=== PATIENT | male | born 1995 | race Caucasian/White ===

== ENCOUNTER 2024-09-08 13:12 | Outpatient (CLI) | payer OTHER, SELFPAY ==
--- OUTSIDE RECORDS SUMMARY | 2024-02-28 07:34 | XMS_ITS | Encounter Summary ---
Author Name [facility] [place] Organization [facility] [place] [place] Address [address] [place] [address] Care Team Providers Care Supervisor Of Communications Name Role Phone MALIK LOTT Primary Care Provider Unavailabl e Insurance Providers: All historical and current Section Date Range: From patient's date of to the date document was created. This section includes the names of all active insurance providers for the patient. Insurance Provider Type of Coverage Plan Name Start of Policy Coverage End of Policy Coverage Group Number Member ID Insurance Provider's Telephone Number Policy Ash's Name Patient's Relationship to Policy Ash [facility] [place] [employer] PREFERRED PROVIDER ORGANIZAT ION (PPO) PPO 1 PLAN W/IHM AND Apr 08, 2024 [id number] OMERO OLVERA ER PATIENT [employer] S[employer]IPTS ([id number]) PRESCRIPT ION [place] A Apr 08, 2024 [place] [id number] OMERO OLVERA PATIENT Selected Encounter This section includes the information on record at [place] for the Encounter. Date/Time Encounter Type Encounter Description Reason Pro vider Source Feb 28, 2024 11:34 AM Outpatient Encounter ADMIN PAT ACTIVTIES (MASNONCT) IHE Encounter Template Text not used by [facility] Plan of Treatment: Future Appointments (+ 6 months) and Future Tests (+/- 45 days) The Plan of Treatment section includes future care activities for the patient from all VA treatmentfacilities. This section includes future appointments and future orders which are active, pending or scheduled. Future Appointments This section includes appointments that were scheduled to occur 6 months from the date of the Encounter, up to a maximum of 20 appointments. The data comes from all [place] treatment facilities. Appointment Date/Time Appointment Type Appointme nt Facility Name May 04, 2024 11:00 AM AMBULATORY - MEDICINE [facility] Jun 29, 2024 10:30 AM [facility] - NONE [facility] Jun 29, 2024 11:30 AM AMBULATORY - PS[facility]CHIATRY [facility] 2024 10:30 AM AMBULATORY - PSYCHIATRY [facility] 2024 01:45 PM AMBULATORY - MEDICINE [facility] Jul 07, 2024 09:00 AM AMBULATORY - MEDICINE [facility] Jul 27, 2024 12:00 PM AMBULATORY - PSYCHIATRY [facility] August 24, 2024 10:30 AM AMBULATORY - PSYCHIATRY [facility] Encounter Notes: All associated encounter notes This section contains the clinical notes associated to the Encounter. Date/Time Encounter Note(s) Provider Source Feb 28, 2024 11:34 AM ENVIRONMENTAL HEAL TH NOTE: LOCAL TITLE: ENVIRONMENTAL HEALTH REGISTRY COORDINATOR STANDARD TITLE: ENVIRONMENTAL HEALTH NOTE DATE OF NOTE: FEB 28, 2024@11:34 ENTRY DATE: FEB 28, 2024@11:34:45 AUTHOR: MANGO CHOI EXP COSIGNER: URGENCY: STATUS: COMPLETED Spoke with [place] to schedule Airborne Registry exam; warm transferred to Benefits for loading into CPRS; warm transferred back to this specifications writer - scheduled exam; mailed letter/WTE handout/map [facility] EXAM May 04, 2024@11:00 [place] /wilbert/ MANGO CHOI RETREADER Signed: 02/28/2024 11:41 [facility]
--- OUTSIDE RECORDS SUMMARY | 2024-05-04 10:25 | XMS_ITS | Encounter Summary ---
Author Name [facility] Address [address] [place] [address] Care Team Providers Care Mobile Home Lot Utility Worker Name Role Phone MALIK LOTT Primary Care [...] Ash's Name Patient's Relationship to Policy Ash [facility] BLUECARD PREFERRED PROVIDER ORGANIZAT ION (PPO) PPO 1 PLAN W/IHM AND Apr 08, 2024 [id number] OMERO OLVERA ER PATIENT [employer] ([id number]) PRESCRIPT ION [place] A Apr 08, 2024 [place] [id number] [phone] OMERO OLVERA ER PATIENT Selected Encounter This section includes the information on record at [place] for the Encounter. Date/Time Encounter Type Encounter Description Reason Provider Source May 04, 2024 02:25 PM [facility] IVNTJ FAM EA ADDL SOCIAL WORK SERVICE ICD-10-CM Z65.5 Exposure to disaster, war and other hostilities MAEGAN GRAJEDA IHE Encounter Template Text not used by [place] Assessments - Encounter Diagnoses This section includes the primary and secondary diagnoses documented for the Encounter. Date/Time Primary/Secondary Diagnosis Diagnosis Name Provider Source May 04, 2024 03:04 PM PRIMARY Exposure to disaster, war and other hostilities [facility] May 04, 2024 03:04 PM SECONDARY Oth problems related to psychosocial circumstances NICCIMAEGAN Pavel [facility] Plan of Treatment: Future Appointments (+ 6 months) and Future Tests (+/- 45 days) The Plan of Treatment section includes future care activities for the [facility] [place] [facility] This section includes future appointments and future orders which are active, pending or scheduled. Future Appointments This section includes appointments that were scheduled to occur 6 months from the date of the Encounter, up to a maximum of 20 appointments. The data comes from all [place] treatment facilities. Appointment Date/Time Appointment Type Appointme nt Facility Name Jun 29, 2024 10:30 AM AMBULATORY - NONE [facility] Jun 29, 2024 11:30 AM AMBULATORY - PSYCHIATRY [facility] 2024 10:30 AM AMBULATORY - PSYCHIATRY [facility] 2024 01:45 PM AMBULATORY - MEDICINE [facility] Jul 07, 2024 09:00 AM AMBULATORY - MEDICINE [facility] Jul 27, 2024 12:00 PM AMBULATORY - PSYCHIATRY [facility] August 24, 2024 10:30 AM AMBULATORY - PSYCHIATRY [facility] September 02, 2024 10:32 AM AMBULATORY - MEDICINE [facility] Oct 05, 2024 10:30 AM AMBULATORY - PSYCHIATRY [facility] Lab Results: +/- 30 days of the encounter This section includes the Chemistry and Hematology Lab Results on record with [place] for the patient. Radiology Reports and Pathology Reports are provided separately, in subsequent sections. Lab Results This section contains the Chemistry/Hematology Results that were resulted 30 days before or 30 daysafter the date of the Encounter. Date/Time Source Result Type Result - Unit Interpretation Reference Range Specimen Type Comment May 04, 2024 12:38 PM [facility] WN ASPERGILLUS FUMIGATUS IGE SERUM Specimen Type : SERUM Comment: . Levels of Specific IgE Class Description of Class ----- ----- < 0.10 0 Negative 0.10 - 0.31 0/I Equivocal/Low 0.32 - 0.55 I Low 0.56 - 1.40 II Moderate 1.41 - 3.90 III High 3.91 - 19.00 IV Very High 19.01 - 100.00 V Very High >100.00 Very High Ordering Provider: RIO GRANADOS II Report Released Date/Time: May 04, 2024 11:57 AM Reporting Lab: [address] [address] Performing Lab: [address] [address] ASPERGILLUS FUMIGATUS IGE <0.10 kU/L Cla ss 0 May 04, 2024 12:38 PM [facility] CBC/PLT BLOOD Specimen Type: BLOOD Comment: ~For Test: CBC/PLT ~AHOBP Registry Ordering Provider: RIO GRANADOS II Report Released Date/Time: May 04, 2024 10:54 AM Reporting Lab: [address] [address] Performing Lab: [address] [address] WBC 6.7 10*3/uL 5.0-10.0 RBC 5.61 10*6/uL 4.6-6.2 HGB 16.4 g/dL 14.0-18.0 HCT 48.3 42.0-52.0 MCV 86.1 fL 80.0-94.0 MCH 29.2 pg 27.0-31.0 MCHC 34.0 g/dL 32.0-36.0 PLT 257 10*3/uL 150-450 MPV 9.4 fL 9.0-13.1 RDW 11.8 11.0-16.0 NRBC 0.0 0.0-0.0 May 04, 2024 12:38 PM [facility] PANEL 5 PLASMA Specimen Type: PLASMA Comment: ~For Test: CBC/PLT ~AHOBP Registry Ordering Provider: RIO GRANADOS II Report Released Date/Time: May 04, 2024 10:54 AM Reporting Lab: [facility] [address] [facility] [address] Performing Lab: [address] [address] CREATININE 1.23 mg/dL 0.72-1.25 UREA NITROGEN 13 mg/dL 9-25 GLUCOSE 104 mg/dL H 74-100 SODIUM 143 mmol/L 136-145 POTASSIUM 4.0 mmol/L 3.5-5.1 CHLORIDE 107 mmol/L 98-107 CO2 25 mmol/L 22-29 CALCIUM 10.2 mg/dL 8.4-10.2 TOTAL PROTEIN 8.0 g/dL 6.4-8.3 ALBUMIN 4.6 g/dL 3.5-5.2 TOTAL BILIRUBIN 0.8 mg/dL 0.2-1.2 AST 21 U/L 5-34 ALT 24 U/L 0-55 ANION GAP 11 meq/L 3-19 ALK PHOS 69 U/L 40-150 eGFR (CKD-EPI) 83 May 04, 2024 12:38 PM [facility] THYROID PROFILE PLASMA Specimen Type: PLASM A Comment: Estimated Glomerular Filtration Rate (eGFR) calculated using the 2020 Chronic Kidney Disease-Epidemiology (CKD-EPI) Collaboration creatinine equation; units of measure are mL/min/1.73 m2. Results are only valid for adults (>=18 years) whose serum creatinine is in a steady state. eGFR calculations are not valid for patients with acute kidney injury and for patients on dialysis. Creatinine-based estimates of kidney function may also be inaccurate in patients with reduced creatinine generation due to decreased muscle mass (e.g., malnutrition, severe hypoalbuminemia, sarcopenia, chronic neuromuscular disease, amputations, severe heart failure or liver disease) and in patients with increased creatinine generation due to increased muscle mass (e.g., muscle builders, anabolic steroids) or increased dietary intake. As drug clearance is proportional to total GFR and not GFR indexed to body surface area (BSA), in individuals with a BSA substantially different than 1.73 m2, drug dosing should be based on the reported eGFR value de-indexed from BSA by multiplying by the individual's BSA and dividing by 1.73. CKD is diagnosed based on abnormalities of kidney structure or function, present for >3 months, with implications for health and disease. CKD is classified and staged based on cause, eGFR and albuminuria (quantified as urine albumin to creatinine ratio). An eGFR >60 mL/min/1.73 m2 in the absence of increased urine albumin excretion or structural abnormalities does not represent CKD. eGFR CKD Interpretation (mL/min/1.73 m2) stage >=90 G1 Normal 60-89 G2 Mild decrease 45-59 G3A Mild to moderate decrease 30-44 G3B Moderate to severe decrease 15-29 G4 Severe decrease <15 G5 Kidney failure Ordering Provider: RIO GRANADOS II Report Released Date/Time: May 04, 2024 10:54 AM Reporting Lab: [address] [address] Performing Lab: [address] [address] TSH 2.0839 m[IU]/mL 0.3500-4.9400 FREE T4 1.07 ng/mL 0.70-1.48 Radiology Reports: +/- 30 days of the encounter Radiology Reports For cases when an order for radiology services may have been completed prior to the date of the Encounter, the report list includes the Radiology Reports that were completed up to 30 days before dateof the Encounter. For cases when an order for radiology services may have been completed after the date of the Encounter, the report list also includes the Radiology Reports that were completed up to30 days after date of the Encounter. The data comes from all [place] treatment facilities. Date/Time Radiology Report Provider Source May 04, 2024 01:09 PM SINUSES 3 OR MORE VIEWS: KATHYA OLVERA [id number] -[id number] M Exm Date: MAY 04, 2024@13:09 Req Phys: RIO GRANADOS II Pat Loc: [facility] F2F HOME REG EXAM (Req Img Loc: [facility] RADIOLOGY Service: [place] [address] (Case [id number] COMPLETE) SINUSES 3 OR MORE VIEWS (RAD Detailed) CPT:76088 Reason for Study: AHOBP Registry Clinical History: Report Status: Verified Date Reported: MAY 06, 2024 Date Verified: MAY 06, 2024 Fruit And Vegetable Packer E-Sig: Report: SINUSES 3 OR MORE VIEWS, CHEST TWO(2) VIEW PA&LAT, 05/04/2024 1:18 PM EST INDICATION: AHOBP Registry COMPARISON: None Impression: Paranasal sinuses: Well-aerated. No acute fracture. CHEST: No edema or pneumonia. No pleural effusion or pneumothorax. Heart size normal. No acute osseous abnormality. Primary Diagnostic Code: NO ALERT REQUIRED Primary Interpreting Staff: AMY WETZEL Staff Physician Verified by accounts payable analyst for AMY ESCALERA [facility] May 04, 2024 01:09 PM CHEST TWO(2) VIEW PA&LAT: WADEKATHYADOYLE LYONS [id number] -[id number] M Exm Date: MAY 04, 2024@13:09 Req Phys: RIO GRANADOS II Pat Loc: [facility] F2F HOME REG EXAM (Req Img Loc: [facility] RADIOLOGY Service: [place] [address] (Case [id number] COMPLETE) CHEST TWO(2) VIEW PA&LAT (RAD Detailed) CPT:27059 Reason for Study: OBP Registry Clinical [facility] Report Status: Verified Date Reported: MAY 06, 2024 Date Verified: MAY 06, 2024 Fruit And Vegetable Packer E-Sig: Report: SINUSES 3 OR MORE VIEWS, CHEST TWO(2) VIEW PA&LAT, 05/04/2024 1:18 PM EST INDICATION: AHOBP Registry COMPARISON: None Impression: Paranasal sinuses: Well-aerated. No acute fracture. CHEST: No edema or pneumonia. No pleural effusion or pneumothorax. Heart size normal. No acute osseous abnormality. Primary Diagnostic Code: NO ALERT REQUIRED Primary Interpreting Staff: AMY WETZEL Staff Physician Verified by accounts payable analyst for AMY ESCALERA [facility] Encounter Notes: All associated encounter notes This section contains the clinical notes associated to the Encounter. Date/Time Encounter Note(s) Provider Source May 04, 2024 02:25 PM SOCIAL WORK CASE M KEVIN NOTE: LOCAL TITLE: POST 12/17 CASE MANAGEMENT SCREENING STANDARD TITLE: WIND UP WORKER NOTE DATE OF NOTE: MAY 04, 2024@14:25 ENTRY DATE: MAY 04, 2024@14:25:28 AUTHOR: MAEGAN GRAJEDA COSIGNER: URGENCY: STATUS: COMPLETED This technical document writer met with the following an [facility] Registry Exam. Spoke to [place] and provided an overview of the [facility] Case Management Program. [place] was assessed for any case management needs or benefits questions. Assisted the with [place] [facility] Enrollment. He would like to be scheduled with primary care. His main healthcare concern at this time is addressing his frequent migrains (multiple days a week) and issues with passing out at work and dizziness and light headedness that causes nausea and vomitting. He reports concern that he may not be able to continue working if these issues are not addressed. Post 12/17 Case Management Screen The contact with the [place] was made in person. [place] demographic information on file is incorrect. Correct Preferred Method(s) of Communication: Email Mail Telephone Text Medical and/or Mental Health Crisis: The is NOT currently experiencing a medical and/or mental health crisis. Emergency Room Visits/Hospital Admissions: The [place] has NOT had three or more emergency room visits or hospital admissions in the past six months. Chronic Health Conditions: Depression Comment: declined need to see mental health provider at this time Other Specify: migraines, trouble with passing out Concerns/Questions/Needs: The [place] HAS concerns, questions or needs regarding barriers to care. prefers appointments on Mondays due to working 6, 13 hour work days throughout the week. The [place] HAS concerns, questions or needs regarding benefits. [place] has a pending claim for [place], is needing help obtaining [place] [employer] discharge paperwork The [place] HAS concerns, questions or needs regarding managing care. has been unable to determine sourse of frequent passing out and migraines The has NO social concerns, questions or needs at this time. Case Management Screen Outcome: The HAS identified needs as described above. The Veterans identified needs were NOT resolved during this encounter. The is appropriate for further assessment. 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 's main healthcare concerns are chronic headaches, dizziness (causing nausea and vomitting), and frequent passing out which is impacting his ability to work. He also reports difficulty with sleeping and is concerned about sleep apnea. was already aware of OBP registry exams, he was present today for that exam. This technical document writer accompanied the [place] to the lab and to x-rays as well as health benefits to assist him with getting enrolled in [place] [facility]. Scheduled [facility] appointments: pending enrollment verification and request for primary care. 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 Housing, financial, and legal Concerns: [place] owns his current home. He denies any financial or legal concerns at this time. This technical document writer did make the [place] aware of the availability of resources to address these concerns should they come up in the future. Employment/Education History and/or Concerns: [place] went to school for a while but did not finish as he was trying to use his [employer] but they denied payment for school since he was doing a work-study program. Provided the [place] with information about [employer]E if he becomes service-connected at least 10%. [place] does not anticipate wanting to pursue additional schooling at this time. 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 He reports he works 6, 13 hour days a week. Relationships/Readjustment /Behavioral Health needs: Discussed mental health services availablility with the [place]. He declined need for mental health services at this time. Encouraged the to seek assistance in the future if needed. Information provided: Primary Care Mental Health Integration (PCMHI), Couples Therapy, Outpatient Individual & Group therapy in ([facility] or [facility]), Residential Treatment for Substance Abuse & PTSD, and Readjustment Counseling (t [place]) and the [facility]. informed of available 29/10 [place]'s Crisis Line contact as [address]. Additional VA benefits/resources provided: VA ID card, VA Guaranteed Home Loan, service connection claims process, VSO contacts, VA Link (VA.GOV), available VA Apps and Jd Bowden the [facility] Coordinator's contact information as [phone] ext. [phone]. Homelessness/Food Insecurity Screen: In the past 2 months, have you been living in stable housing that you own, rent, or stay in as part of a household? Yes - Living in stable housing. Are you worried or concerned that in the next 2 months you may NOT have stable housing that you own, rent, or stay in as part of a household? No - Not worried about housing near future The [place] reports the following: Within the past 12 months, you worried whether your food would run out before you got money to buy more. Never true Within the past 12 months, the food you bought just didn't last and you didn't have money to get more. 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 The [place] has not already been diagnosed as having TBI during post 12/17 deployment. 1. The experienced the following events during deployment: Fall 2. The [place] had the following symptoms immediately afterwards: Being dazed, confused or seeing stars 3. The [place] states the following problems began or got worse afterwards: Balance problems or Dizziness Sensitivity to light Irritability Headaches Sleep problems 4. The [place] relates he/she is currently having or has had the following symptoms within the past week: Balance problems or dizziness Sensitivity to light Irritability Headaches Sleep problems Positive screen. Results of TBI Screen discussed with patient. Consult for further evaluation discussed with the patient and the patient agrees. Consult order entered or provider notified to enter. Comment: is still pending enrollment, he will be eligible based on his deployment. he has been having difficulty with frequent dizzy spells and migraines and passing out(with falls). He is unsure the cause of his symptoms Diagnosis: Exposure to disaster, war, and other hostilities Other Specified Problems Related to Psychosocial Circumstances Procedure: Health and Behavioral Assessment. 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 denied any ongoing case management needs. [place] verbalized understanding all the above information and how to contact the [facility] Case Management Team for any benefit questions or case management needs in the future. Solution Strategist available for any further case management needs, please alert or contact at ext. [phone]. This provider is receiving ongoing supervision by Karsten Boykin LCSW, regarding the mental health treatment of this patient. A total of 2 hours weekly supervision is obtained, and this patient's care is discussed as needed, in compliance with [facility] Directive 1027. /wilbert/ MAEGAN SILVA, HOTBED LEVER OPERATOR Signed: 05/04/2024 15:04 MAEGAN GRAJEDA [facility]
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
--- OUTSIDE RECORDS SUMMARY | 2024-05-27 06:27 | XMS_ITS | Encounter Summary ---
Author Name [facility] [place] Organization [place] Address [address] [place] [address] Care Team Providers Care Brace Maker Name Role Phone MALIK LOTT Primary Care [...] Ash's Name Patient's Relationship to Policy Ash [facility] [place] BLUECARD PREFERRED PROVIDER ORGANIZAT ION (PPO) PPO 1 PLAN W/IHM AND Apr 08, 2024 [id number] OMERO OLVERA ER PATIENT EXPRESS SCRIPTS ([id number]) PRESCRIPT ION TOYOT A Apr 08, 2024 [place] [id number] OMERO OLVERA PATIENT Selected Encounter This section includes the information on record at [place] for the Encounter. Date/Time Encounter Type Encounter Description Reason Pro vider Source May 27, 2024 10:27 AM Outpatient Encounter ADMIN PAT ACTIVTIES (MASNONCT) IHE Encounter Template Text not used by [place] Plan of Treatment: Future Appointments (+ 6 [...] 20 appointments. The data comes from all [facility] facilities. Appointment Date/Time Appointment Type Appointme nt Facility Name Jun 29, 2024 10:30 AM [facility]ORY - NONE [facility] Jun 29, 2024 11:30 AM AMBULATORY - PSYCHIATRY [facility] 2024 10:30 AM AMBULATORY - PSYCHIATRY [facility] 2024 01:45 PM AMBULATORY - MEDICINE [facility] Jul 07, 2024 09:00 AM AMBULATORY - MEDICINE [facility] Jul 27, 2024 12:00 PM AMBULATORY - PSYCHIATRY [facility] August 24, 2024 10:30 AM AMBULATORY - PSYCHIATRY [facility] September 02, 2024 10:32 AM AMBULATORY - MEDICINE [facility] Oct 05, 2024 10:30 AM AMBULATORY - PSYCHIATRY [facility] Lab Results: +/- 30 days of the encounter This section includes the Chemistry and Hematology Lab Results on record with [place] for the patient. Radiology Reports and Pathology Reports are provided separately, in subsequent sections. Lab Results This section contains the Chemistry/Hematology Results that were resulted 30 days before or 30 daysafter the date of the Encounter. Date/Time Source Result Type Result - Unit Interpretation Reference Range Specimen Type Comment May 04, 2024 12:38 PM [facility] WN ASPERGILLUS FUMIGATUS IGE SERUM Specimen Type [...] May 04, 2024 11:57 AM Reporting Lab: [address] [address] Performing Lab: [facility] [address] [facility] [address] ASPERGILLUS FUMIGATUS IGE <0.10 kU/L Cla ss 0 May 04, 2024 12:38 PM [facility] CBC/PLT BLOOD Specimen Type: BLOOD Comment: ~For Test: CBC/PLT ~AHOBP Registry Ordering Provider: RIO GRANADOS II Report Released Date/Time: May 04, 2024 10:54 AM Reporting Lab: [address] [address] Performing Lab: [address] [address] WBC 6.7 10*3/uL 5.0-10.0 RBC 5.61 10*6/uL 4.6-6.2 HGB 16.4 g/dL 14.0-18.0 HCT 48.3 42.0-52.0 MCV 86.1 fL 80.0-94.0 MCH 29.2 pg 27.0-31.0 MCHC 34.0 g/dL 32.0-36.0 PLT 257 10*3/uL 150-450 MPV 9.4 fL 9.0-13.1 RDW 11.8 11.0-16.0 NRBC 0.0 0.0-0.0 May 04, 2024 12:38 PM [facility] PANEL 5 PLASMA Specimen Type: PLASMA Comment: ~For Test: CBC/PLT ~AHOBP Registry Ordering Provider: RIO GRANADOS II Report Released Date/Time: May 04, 2024 10:54 AM Reporting Lab: [address] [address] Performing Lab: [address] [address] CREATININE 1.23 mg/dL 0.72-1.25 UREA NITROGEN 13 [...] (CKD-EPI) 83 May 04, 2024 12:38 PM [facility] THYROID PROFILE PLASMA Specimen Type: [...] May 04, 2024 10:54 AM Reporting Lab: [address] [address] Performing Lab: [address] [address] TSH 2.0839 m[IU]/mL 0.3500-4.9400 FREE T4 1.07 [...] the Encounter. The data comes from all [place] treatment facilities. Date/Time Radiology Report Provider Source May 04, 2024 01:09 PM SINUSES 3 OR MORE VIEWS: KATHYA OLVERA [id number] -1995 M Exm Date: MAY 04, 2024@13:09 Req Phys: RIO GRANADOS II Pat Loc: [address] HOME REG EXAM (Req Img Loc: [facility] RADIOLOGY Service: [place] [address] (Case [id number] COMPLETE) SINUSES 3 OR MORE VIEWS (RAD Detailed) CPT:12580 Reason for Study: AHOBP Registry Clinical History: Report Status: Verified Date Reported: MAY 06, 2024 Date Verified: MAY 06, 2024 Forensic Toxicologist E-Sig: Report: SINUSES 3 OR MORE VIEWS, CHEST TWO(2) VIEW PA&LAT, 05/04/2024 1:18 PM EST INDICATION: AHOBP Registry COMPARISON: None Impression: Paranasal sinuses: Well-aerated. No acute fracture. CHEST: No edema or pneumonia. No pleural effusion or pneumothorax. Heart size normal. No acute osseous abnormality. Primary Diagnostic Code: NO ALERT REQUIRED Primary Interpreting Staff: AMY WETZEL Staff Physician Verified by digital sales manager for [facility] May 04, 2024 01:09 PM CHEST TWO(2) VIEW PA&LAT: KATHYA OLVERA [id number] -1995 M Exm Date: MAY 04, 2024@13:09 Req Phys: RIO GRANADOS II Pat Loc: [facility] F2F HOME REG EXAM (Req Img Loc: [facility] RAD[facility] Service: Unknown [place] [id number] (Case [id number] COMPLETE) CHEST TWO(2) VIEW PA&LAT (RAD Detailed) CPT:99520 Reason for Study: AHOBP Registry [facility] Report Status: Verified Date Reported: MAY 06, 2024 Date Verified: MAY 06, 2024 Forensic Toxicologist E-Sig: Report: SINUSES 3 OR MORE VIEWS, CHEST TWO(2) VIEW PA&LAT, 05/04/2024 1:18 PM EST INDICATION: AHOBP Registry COMPARISON: None Impression: Paranasal sinuses: Well-aerated. No acute fracture. CHEST: No edema or pneumonia. No pleural effusion or pneumothorax. Heart size normal. No acute osseous abnormality. Primary Diagnostic Code: NO ALERT REQUIRED Primary Interpreting Staff: AMY WETZEL Staff Physician Verified by digital sales manager for [facility] Encounter Notes: All associated encounter notes This section contains the clinical notes associated to the Encounter. Date/Time Encounter Note(s) Provider Source May 27, 2024 10:27 AM LETTERS: LOCAL TITLE: SPECIALTY CONTACT LETTER STANDARD TITLE: LETTERS DATE OF NOTE: MAY 27, 2024@10:27 ENTRY DATE: MAY 27, 2024@10:27:08 AUTHOR: CIARA SANDERS COSIGNER: URGENCY: STATUS: COMPLETED [facility] [address] [place] [address] Mr. KATHYA OLVERA [address] [place] [address] MAY 27, 2024 Dear KATHYA OLVERA, We have been unable to contact you by telephone to schedule an appointment in our Pulmonology/PFT clinic. Your health and well-being are important to us. Please call us at or . Select Option #2 and then #3. We look forward to hearing from you soon. Sincerely yours, Pulmonology/PFT [facility] CIARA SANDERS-RENATO [facility]
--- OUTSIDE RECORDS SUMMARY | 2024-06-29 06:30 | XMS_ITS | Encounter Summary ---
Author Name [facility] [place] Organization [place] Address [address] [place] [address] Care Team Providers Care Crusher Assembler Name Role Phone BIA FAIRCHILD Primary Care Provider Unavailabl e Insurance Providers: [...] Ash's Name Patient's Relationship to Policy Ash [facility] BLUECARD PREFERRED PROVIDER ORGANIZAT ION (PPO) PPO 1 PLAN W/IHM AND Apr 08, 2024 [id number] OMERO OLVERA ER PATIENT EXPRESS SCRIPTS ([id number]) PRESCRIPT ION TOYOT A Apr 08, 2024 [place] [id number] OMERO OLVERA ER PATIENT Selected Encounter This section includes the information on record at [place] for the Encounter. Date/Time Encounter Type Encounter Description Reason Provider Source Jun 29, 2024 10:30 AM OFFICE O/P NEW MOD 45 MIN PRIMARY CARE/MEDICINE ICD-10-CM R55 Syncope and collapse BIA FAIRCHILD K IHNathalia Encounter Template Text not used by [place] Assessments - Encounter Diagnoses This section includes the primary and secondary diagnoses documented for the Encounter. Date/Time Primary/Secondary Diagnosis Diagnosis Name Provider Source Jun 29, 2024 03:28 PM PRIMARY Syncope and collapse FAIRCHILDBIA MELGOZA [facility] Plan of Treatment: Future Appointments (+ 6 months) and Future Tests (+/- 45 days) The Plan of Treatment section includes future care activities for the patient from [facility] [place] [facility]. This section includes future appointments and future orders which are active, pending or scheduled. Future Appointments This section includes appointments that were scheduled to occur 6 months from the date of the Encounter, up to a maximum of 20 appointments. The data comes from all [facility]. Appointment Date/Time Appointment Type Appointme nt Facility Name 2024 10:30 AM [facility] 2024 01:45 PM AMBULATORY - MEDICINE [facility] Jul 07, 2024 09:00 AM AMBULATORY - MEDICINE [facility] Jul 27, 2024 12:00 PM [facility] August 24, 2024 10:30 AM [facility] September 02, 2024 10:32 AM AMBULATORY - MEDICINE [facility] Oct 05, 2024 10:30 AM [facility] Vital Signs: All taken on the encounter date This section contains inpatient and outpatient Vital Signs collected on the date of the Encounter. Date/Time Temperature Pulse Blood Pressure Respiratory Rate SP02 Pain Height Weight Body Mass Index Source Jun 29, 2024 10:33 AM 117/[address] [facility] Jun 29, 2024 10:29 AM 97.7 75 135/90 16 96 0 72 224 30 [facility] Social History: Smoking Status (Most current) and Tobacco Use (All prior to encounter date) This section includes the most current, and the historical, smoking and tobacco- related health factors from the [place] facility where the Encounter took place. Current Smoking Status This section includes the most current smoking, or tobacco-related health factor, from the [place] facility where the Encounter took place. Date/Time Current Smoking Status Khang hardy Jun 29, 2024 10:30 AM [place]-TOBACCO NEVER U SED CIGARETTES [facility] Tobacco Use History This section includes a history of the smoking, or tobacco-related health factors, that were collected on or before the date of the Encounter. The data comes from the [place] facility where the Encounter took place. Date/Time Smoking Status/Tobacco Use Comment F acility Jun 29, 2024 10:30 AM [place]-TOBACCO NEVER U SED OTHER TYPE [facility] Encounter Notes: All associated encounter notes This section contains the clinical notes associated to the Encounter. Date/Time Encounter Note(s) Provider Source Jun 29, 2024 03:30 PM MEDICATION MGT NOT E: LOCAL TITLE: OUTPATIENT ESSENTIAL MEDICATION LIST FOR REVIEW (EM STANDARD TITLE: MEDICATION MGT NOTE DATE OF NOTE: JUN 29, 2024@15:30 ENTRY DATE: JUN 29, 2024@15:30:11 AUTHOR: BIA FAIRCHILD EXP COSIGNER: URGENCY: STATUS: COMPLETED Review of medications include: Patient allergies (Remote and Local) and active and pending prescriptions dispensed from this [place] (local) and dispensed from another [place] or [place] facility (remote and pending) as well as local inpatient orders (pending and active) and clinic medications (IMOs), locally documented non-VA medications and local prescriptions that have or been discontinued in the past 90 days. With the exception of Allergies, if a category is not listed below, it means there were no relevant medications for the patient. ALLERGIES: Patient has answered NKA No Remote Allergy/ADR Data available for this patient ACTIVE OUTPATIENT MEDICATIONS LOCAL/REMOTE No local medications found. No remote medications found. PENDING OUTPATIENT MEDICATIONS (LOCAL/REMOTE): No local medications found. No remote medications found. ACTIVE NONVA MEDICATIONS (LOCAL): No local medications found. OUTPATIENT MEDICATIONS (LOCAL)WITHIN 90 DAYS: No local medications found. DISCONTINUED OUTPATIENT MEDICATIONS (LOCAL) WITHIN 90 DAYS: No local medications found. CLINIC MEDICATIONS (LOCAL): No local medications found. /wilbert/ Bia Fairchild MD Primary Care Physician Signed: 06/29/2024 15:30 BIA FAIRCHILD [facility] Jun 29, 2024 10:34 AM CONSULT: LOCAL TITLE: PC NEW PATIENT CONSULT RESPONSE STANDARD TITLE: CONSULT DATE OF NOTE: JUN 29, 2024@10:34 ENTRY DATE: JUN 29, 2024@10:34:22 AUTHOR: BIA FAIRCHILD EXP COSIGNER: URGENCY: STATUS: COMPLETED Age-28 Chief complaint: Establish care HPI: [facility] However, he brought no medical records. Patient reports a long history of feeling lightheaded and a syncopal episode in 2019. Last episode was approximately 3 to 4 months ago when he became dizzy and had nausea and vomiting. He felt like he was close to passing out. He noted that a coworker described him as being looking stressed. Symptoms resolved after 30 min and he felt great. Patient has an outside PCP, Dr. Chiu, who referred him to a smudger in [place] approximately 6 months ago. He had EKG, echo, blood work, and stress test which he reports as normal. Patient has not had a recent Zio patch or event monitor. He does report having a 6-day monitor in 2019 but results are unknown. Patient states that Dr. Chiu prescribed levothyroxine but he did not take the medication. Patient states that these episodes of lightheadedness occur approximately twice annually. He reports being stressed a lot both with his personal and work life. If I am late to anything, I get all worked up. He is agreeable to a [facility] [place] evaluation today. Medical History: Active problems - Computerized Problem List is the source for the followin. Headache ([facility] [id number]) 2. Allergic Rhinitis ([facility] [id number]) 3. Dyspnea on exertion [ordered PFT and echo- Rule-out IHSS cardiogenic vs pulm etiology] 4. Syncope [reported rare syncope, only when heart is tachy, seems to be good conditioning- R/o IHSS on TTEcho 5. 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 Smoking: denies ETOH: denies Illicit: denies Family Hx: Father: [place] age 54 Mother: [place] PE: 224 lb [101.60 kg] (06/29/2024 10:29) 72 in [182.9 cm] (06/29/2024 10:29) Measurement DT BP 06/29/2024 10:33 117/72 75 (06/29/2024 10:29) BODY MASS INDEX - 30.4 PULSE OX: Measurement DT POx (L/MIN)(%) 06/29/2024 10:29 96 Gen: WN WD WM ENT: translucent TMs Pulm: B CTA; nl respiratory rate CV: RRR no M/R/G; no carotid bruits; no edema GI: NT/ND +BS; no HSM MSK: nl gait; no cyanosis or clubbing of nails; muscle strength 5/5 B UE & LE Neuro: sensation intact Psych: appropriate mood and affect; A&Ox3 ECHO - NONE FOUND Lipid Prof - NONE FOUND PANEL 1 Mark. date GLUCOSE BUN CREAT SODIUM K CHLOR CO2 05/04/24 12:38 104 H 13 1.23 143 4.0 107 25 The OBJECT CBC CUMULATIVE (08/06Y) was NOT found...Contact IRM. Collection DT Specimen Test Name Result Units Ref Range 05/04/2024 12:38 PLASMA!! TSH 2.0839 mIU/mL 0.3500 - 4.9400 05/04/2024 12:38 PLASMA!! FREE T4 1.07 ng/mL 0.70 - 1.48 !! Indicates COMMENTS AVAILABLE...Refer to Interim Lab Report. Z PROSTATIC ANTIGEN - NONE FOUND Z GLYCOHEMOGLOBIN (HPLC) - NONE FOUND A/P: 1. syncope - pt will bring outside records including echo, EKG, stress test, labs, and clinic visits from Dr. Chiu; order event monitor; suspect anxiety related sx; [facility] [place] referral Follow up: 11 mos I spent 50 min today reviewing last visit notes, evaluating and managing the patients conditions, and documenting clinic information in health record. __ Preparing to see patient (tests, reviewing last progress note) _x_ Perform medically necessary Exam _x_ Order tests, procedures, medications _x_ Documenting clinical info in health record __ Independently interpreting results and communicating results to patient/caregiver ___ Refer and/or communicate with other providers regarding patient ___ Obtain/review separately obtained history ___ Placed consult MEDICATION RECONCILIATION: The Outpt Essential Med List for review (EMLR) was reviewed w/the pt and the pt declined an updated reconciled med list w/discrepancies corrected. The patient/caregiver verbalized understanding of the topics covered/discussed in today's visit. Patient/caregiver were given the opportunity to ask questions to MD. /wilbert/ Bia Fairchild MD Primary Care Physician Signed: 06/29/2024 15:29 BIA FAIRCHILD [facility] Jun 29, 2024 10:29 AM PRIMARY CARE YULI LOPEZ NOTE: LOCAL TITLE: Pc Health Tech/rn progressive care unit Note STANDARD TITLE: PRIMARY CARE NURSING NOTE DATE OF NOTE: JUN 29, 2024@10:29 ENTRY DATE: JUN 29, 2024@10:29:04 AUTHOR: SANDRA MONTELONGO COSIGNER: URGENCY: STATUS: COMPLETED The patient was given a list of his current medications, instructed to review and discuss any changes or problems with their provider. Patient advised to carry a list of current medications and any allergies with them in the event of emergency situations. Yes - [place]/Caregiver verbalized understanding of topics discussed and education provided Alcohol Use Screen (AUDIT-C): Alcohol Screen: SCREEN FOR ALCOHOL (AUDIT-C) An alcohol screening test (AUDIT-C) was negative (score=0). 1. How often did you have a drink containing alcohol in the past year? Consider a drink to be a 12 ounce can or bottle of regular beer, 8 ounces of malt liquor, a 5 ounce glass of table wine, or a 1.5 ounce shot of liquor (like scotch, gin, or vodka). Never 2. How many drinks containing alcohol did you have on a typical day when you were drinking in the past year? Response not required due to responses to other questions. 3. How often did you have six or more drinks on one occasion in the past year? Response not required due to responses to other questions. COVID-19 Immunization: Refused Moderna Monovalent COVID-19 vaccine Immunization: COVID-19 (MODERNA), MRNA, LNP-S, PF, 50 MCG/0.5 ML (AGES 12+ YEARS) Refusal Reason: PATIENT DECISION Patient refuses all immunization(s) in the COVID-19 group Date Documented: 06/29/24 10:57 Depression Screening: Perform PHQ-2 A PHQ-2 screen was performed. The score was 0 which is a negative screen for depression. Over the past two weeks, how often have you been bothered by the following problems? 1. Little interest or pleasure in doing things Not at all 2. Feeling down, depressed, or hopeless Not at all Influenza Immunization: Deferral / Refusal The patient declines to receive the recommended dose of seasonal influenza vaccine. Immunization: INFLUENZA, UNSPECIFIED FORMULATION Refusal Reason: PATIENT DECISION Patient refuses all immunization(s) in the FLU group Date Documented: 06/29/24 10:58 MST Screening: Patient denies experiencing sexual trauma (MST). PTSD Screening: PC-PTSD-5 A PTSD screening test (PC-PTSD-5) was negative (score=0). IN THE PAST MONTH, have you ever had any experience that was so frightening, horrible or traumatic. For example: A serious accident or fire a physical or sexual assault or abuse An earthquake or flood A war Seeing someone be killed or seriously injured Having a loved one through homicide or suicide 1. Have you ever experienced this kind of event? NO 2. Had nightmares about the event(s) or thought about the event(s) when you did not want to? Response not required due to responses to other questions. 3. Tried hard not to think about the event(s) or went out of your way to avoid situations that reminded you of the event(s)? Response not required due to responses to other questions. 4. Been constantly on guard, watchful, or easily startled? Response not required due to responses to other questions. 5. [place] numb or detached from people, activities, or your surroundings? Response not required due to responses to other questions. 6. [place] guilty or unable to stop blaming yourself or others for the event(s) or any problems the event(s) may have caused? Response not required due to responses to other questions. Screen for Embedded Fragments: SCREEN FOR EMBEDDED FRAGMENTS The patient reports no embedded fragments. Suicide Screen: C-SSRS Screening [place] Suicide Severity Rating Scale (C-SSRS) screener 1. Over the past month, have you wished you were or wished you could go to sleep and not wake up? No 2. Over the past month, have you had any actual thoughts of killing yourself? No 3. Over the past month, have you been thinking about how you might do this? Response not required due to responses to other questions. 4. Over the past month, have you had these thoughts and had some intention of acting on them? Response not required due to responses to other questions. 5. Over the past month, have you started to work out or worked out the details of how to kill yourself? Response not required due to responses to other questions. 6. If yes, at any time in the past month did you intend to carry out this plan? Response not required due to responses to other questions. 7. In your lifetime, have you ever done anything, started to do anything, or prepared to do anything to end your life (for example, collected pills, obtained a gun, gave away valuables, went to the roof but didn't jump)? No 8. If YES, was this within the past 3 months? Response not required due to responses to other questions. Sexual Orientation: The patient thinks of their sexual orientation as: Straight or Heterosexual Learning Readiness Assessment: Preferred language for discussing health care Qatari NEW ASSESSMENT LEARNING BARRIERS Visual Barrier Comment: corrective lenses READING LIMITATIONS No reading limitations PREFERRED METHODS FOR LEARNING Written/Printed Material Demonstration (Audio/Visual) INTERESTED IN LEARNING (MOTIVATED) PERSON BEING EDUCATED TODAY Education was provided on the following topics RESPONSE Tobacco Use Screening: The patient has never smoked cigarettes. The patient has never used other types of tobacco. Influenza Immunization: Deferral / Refusal The patient declines to receive the recommended dose of seasonal influenza vaccine. Immunization: INFLUENZA, UNSPECIFIED FORMULATION Refusal Reason: PATIENT DECISION Patient refuses all immunization(s) in the FLU group Date Documented: 06/29/24 13:13 Hepatitis B Serology/Immunization: The patient declines to receive the recommended dose of Hepatitis B vaccine. Immunization: HEP B, UNSPECIFIED FORMULATION Refusal Reason: PATIENT DECISION Patient refuses all immunization(s) in the HepB group Date Documented: 06/29/24 13:13 Human Papillomavirus (HPV): The patient declines to receive the recommended dose of HPV vaccine. Immunization: HPV9 Refusal Reason: PATIENT DECISION Patient refuses all immunization(s) in the HPV group Date Documented: 06/29/24 13:14 Tdap Immunization: The patient declines to receive the recommended dose of Tdap vaccine. Immunization: TDAP Refusal Reason: PATIENT DECISION Patient refuses all immunization(s) in the TDAP group Date Documented: 06/29/24 13:14 /wilbert/ SANDRA MONTELONGO Licensed Practical Nurse Signed: 06/29/2024 13:14 SANDR[facility]ELONGO [facility]
--- OUTSIDE RECORDS SUMMARY | 2024-07-06 09:45 | XMS_ITS | Encounter Summary ---
Author Name [facility] [place] Address [address] [place] [address] Care Team Providers Care Larriman Name Role Phone MALIK LOTT Primary Care [...] Ash's Name Patient's Relationship to Policy Ash [facility] BLUECARD PREFERRED PROVIDER ORGANIZAT ION (PPO) PPO 1 PLAN W/IHM AND Apr 08, 2024 [id number] OMERO OLVERA ER PATIENT EXPRESS SCRIPTS ([id number]) PRESCRIPT ION [place]OT A Apr 08, 2024 [place] [id number] OMERO OLVERA ER PATIENT Selected Encounter This section includes the information on record at [place] for the Encounter. Date/Time Encounter Type Encounter Description Reason Provider Source 2024 01:45 PM TTE W/DOPPLER COMPLETE CARDIAC ECHO ICD-10-CM R06.09 Other forms of dyspnea WOODY HUMPHRIES IHE Encounter Template Text not used by [place] Assessments - Encounter Diagnoses This section includes the primary and secondary diagnoses documented for the Encounter. Date/Time Primary/Secondary Diagnosis Diagnosis Name Provider Source Jul 07, 2024 05:31 PM PRIMARY Other forms of dyspnea LYNNE LYLES [facility] Jul 07, 2024 05:31 PM SECONDARY Syncope and collapse [facility] Plan of Treatment: Future Appointments (+ 6 months) and Future Tests (+/- 45 days) The Plan of Treatment section includes future care activities for the patient from all [place] [facility]. This section includes future appointments and future orders which are active, pending or scheduled. Future Appointments This section includes appointments that were scheduled to occur 6 months from the date of the Encounter, up to a maximum of 20 appointments. The data comes from all [facility]. Appointment Date/Time Appointment Type Appointme nt Facility Name Jul 07, 2024 09:00 AM AMBULATORY - MEDICINE [facility] Jul 27, 2024 12:00 PM AMBULATORY - PSYCHIATRY [facility] August 24, 2024 10:30 AM AMBULATORY - PSYCHIATRY [facility] September 02, 2024 10:32 AM AMBULATORY - MEDICINE [facility] Oct 05, 2024 10:30 AM AMBULATORY - PSYCHIATRY [facility] Encounter Notes: All associated encounter notes This section contains the clinical notes associated to the Encounter. Date/Time Encounter Note(s) Provider Source Jul 07, 2024 05:29 PM CARDIOLOGY NOTE: LOCAL TITLE: CARDIOLOGY CHART CHECK NOTE STANDARD TITLE: CARDIOLOGY NOTE DATE OF NOTE: JUL 07, 2024@17:29 ENTRY DATE: JUL 07, 2024@17:29:22 AUTHOR: LYNNE LYLES EXP COSIGNER: URGENCY: STATUS: COMPLETED echo poerformed 2024 /wilbert/ LYNNE LYLES, SRaJren ECHO ROCKET TEST FIRE WORKER ECHO ROCKET TEST FIRE WORKER Signed: 07/07/2024 17:31 [facility] 2024 05:00 PM PROCEDURE REPORT: LOCAL TITLE: CP CARD/ECHO STANDARD TITLE: PROCEDURE REPORT DATE OF NOTE: 2024@17:00:46 ENTRY DATE: 2024@17:00:46 AUTHOR: CLINICAL,DEVICE PRO EXP COSIGNER: URGENCY: STATUS: COMPLETED PROCEDURE SUMMARY CODE: Machine Resulted DATE/TIME PERFORMED: 2024@17:00:2 DOCUMENT IN VISTA IMAGING SEE FULL REPORT IN VISTA IMAGING SIGNATURE NOT REQUIRED SEE SIGNATURE IN VISTA IMAGING (ZXCELERA TTE) AUTO-INSTRUMENT DIAGNOSIS Procedure: Adult Adult Release Status: Released Off-Line Verified Date Verified: 2024@17:00:27 CP Order Number: [id number] [address] [place], [phone] [phone] Adult Echocardiogram Report Name: KATHYA OLVERA Study Date: 2024 01:57 PM : 1995 Gender: Male Age: 29 yrs Ordering Physician: RIO GRANADOS Reason For Study: IHSS Performed By: Lynne Lyles Height: 72 in Weight: 216 lb BSA: 2.2 m2 BP: 132/82 mmHg Interpretation Summary A complete two-dimensional transthoracic echocardiogram was performed (2D, M- mode, Doppler and color flow Doppler). The rate and rhythm during this exam was most suggestive of normal sinus at 60-70bpm. The study was technically excellent. No recent echo is available for comparison. 1. Normal wall thickness. Left ventricular systolic function is normal, with estimated EF > 55%. The diastolic function is normal. The E/e' ratio is most consistent with 'a normal' left atrial pressure. 2. The right ventricular systolic function is normal. 3. No significant valvular stenosis or regurgitation 4. There is no pericardial effusion. Left Ventricle The left ventricular end-diastolic dimension is normal for men (4.2-5.4cm). There is normal left ventricular wall thickness. Left ventricular systolic function is normal, with estimated EF > 55%. The diastolic function is normal. The E/e' ratio is most consistent with 'a normal' left atrial pressure. The left ventricular wall motion is normal. Right Ventricle The right ventricle is normal size. The right ventricular systolic function is normal. The estimated global right ventricular systolic function based upon the tricuspid annular plane of systolic excursion (TAPSE) is 'normal (>17mm)'. The estimated global right ventricular systolic function based upon the TDE maximal systolic velocity is 'normal (>=9.5cm/s)' . Unable to estimate RVSP due to inadequate TR signal. Atria The left atrial size is normal. The right atrial size is normal. Based upon the IVC size and respiratory variation, the estimated RAP is '3mmHg (<=21mm; >50% collapse)'. Mitral Valve The mitral valve is normal in appearance. There is no mitral stenosis. There is trace mitral regurgitation. Tricuspid Valve The tricuspid valve is normal. There is no tricuspid stenosis. There is trace tricuspid regurgitation. Aortic Valve The aortic valve is trileaflet. No hemodynamically significant valvular aortic stenosis. No aortic regurgitation. Pulmonic Valve The pulmonic valve is not well seen, but is grossly normal. There is no pulmonic valvular stenosis. Mild pulmonic valvular regurgitation. Great Vessels The aortic root is normal size. Pericardium/Pleural There is no pericardial effusion. MMode/2D Measurements \T\ Calculations IVSd: 0.64 cm LVIDd: 5.0 cm LV mass(C)d: 93.0 grams LVPWd: 0.54 cm Ao root diam: 2.6 cm Time Measurements MV dec time: 0.18 sec Doppler Measurements \T\ Calculations MV E max niraj: Ao V2 max: 153.0 cm/sec LV V1 max P.3 mmHg 81.5 cm/sec Ao max P.4 mmHg LV V1 mean P.0 mmHg MV A max niraj: Ao V2 mean: 108.0 cm/sec LV V1 max: 144.0 cm/sec 73.3 cm/sec Ao mean P.0 mmHg LV V1 mean: 89.9 cm/sec MV E/A: 1.1 Ao V2 VTI: 29.9 cm LV V1 VTI: 27.5 cm RV S Vel_phl: Lat Peak E' Niraj: Med Peak E' Niraj: 13.3 cm/sec 18.4 cm/sec 11.4 cm/sec MV E/e' (Avg): 5.8 MV Lat E/e': 4.4 MV Med E/e': 7.1 Reading Physician: Woody Humphries MD 2024 05:00 PM Ordering Physician: RIO GRANADOS Performed By: Lynne Lyles Administrative Closure: 2024 by: DEVICE PROXY SERVICE CLINICAL CLINICAL,DEVICE PROXY SERVICE CLINICAL,DEVICE PROXY SERVICE [facility]
--- OUTSIDE RECORDS SUMMARY | 2024-07-27 08:00 | XMS_ITS | Encounter Summary ---
Author Name [facility] [place] Address [address] [place] [address] Care Team Providers Care Duck Farmer Name Role Phone MALIK LOTT Primary Care [...] Ash's Name Patient's Relationship to Policy Ash [facility] BLUECARD PREFERRED PROVIDER ORGANIZAT ION (PPO) PPO 1 PLAN W/IHM AND Apr 08, 2024 [id number] [id number] OMERO OLVERA ER PATIENT [employer] SCRIPTS ([id number]) PRESCRIPT ION TOYOT A Apr 08, 2024 [place] [id number] OMERO OLVERA ER PATIENT Selected Encounter This section includes the information on record at [place] for the Encounter. Date/Time Encounter Type Encounter Description Reason Provider Source Jul 27, 2024 12:00 PM PSYTX W PT 45 MINUTES [facility] INDIV ICD-10-CM F32.A Depression, unspecified ELISSA PURVIS D IHE Encounter Template Text not used by [place] Assessments - Encounter Diagnoses This section includes the primary and secondary diagnoses documented for the Encounter. Date/Time Primary/Secondary Diagnosis Diagnosis Name Provider Source Jul 27, 2024 01:03 PM PRIMARY Depression, unspecified ELISSA PURVIS Ayo [facility] Jul 27, 2024 01:03 PM SECONDARY Anxiety disorder, unspecified ELISSA PURVIS Ayo [facility] Plan of Treatment: Future Appointments (+ 6 months) and Future Tests (+/- 45 days) The Plan of Treatment section includes future care activities for the patient from all [place] [facility]. This section includes future appointments and future orders which are active, pending or scheduled. Future Appointments This section includes appointments that were scheduled to occur 6 months from the date of the Encounter, up to a maximum of 20 appointments. The data comes from all [place] treatment facilities. Appointment Date/Time Appointment Type Appointme nt Facility Name August 24, 2024 10:30 AM AMBULATORY - PSYCHIATRY [facility] September 02, 2024 10:32 AM AMBULATORY - MEDICINE [facility] Oct 05, 2024 10:30 AM AMBULATORY - PSYCHIATRY [facility] Social History: Smoking Status (Most current) and Tobacco Use (All prior to encounter date) This section includes the most current, and the historical, smoking and tobacco- related health factors from the [place] facility where the Encounter took place. Current Smoking Status This section includes the most current smoking, or tobacco-related health factor, from the [place] facility where the Encounter took place. Date/Time Current Smoking Status Comment Facil ity Jun 29, 2024 10:30 AM [place]-TOBACCO NEVER U SED CIGARETTES [facility] Tobacco Use History This section includes a history of the smoking, or tobacco-related health factors, that were collected on or before the date of the Encounter. The data comes from the [place] facility where the Encounter took place. Date/Time Smoking Status/Tobacco Use Comment F acility Jun 29, 2024 10:30 AM [place]-TOBACCO NEVER U SED OTHER TYPE [facility] Encounter Notes: All associated encounter notes This section contains the clinical notes associated to the Encounter. Date/Time Encounter Note(s) Provider Source Jul 27, 2024 01:04 PM MENTAL HEALTH NOTE: LOCAL TITLE: [facility] FOLLOW UP MONITOR NOTE STANDARD TITLE: MENTAL HEALTH NOTE DATE OF NOTE: JUL 27, 2024@13:04:58 ENTRY DATE: JUL 27, 2024@13:04:58 AUTHOR: JUAN DANIEL PURVIS COSIGNER: URGENCY: STATUS: COMPLETED Assessments were sent to the via text/email. These assessments were completed by KATHYA OLVERA on their own device on 07/27/2024 12:10:36 PM. PATIENT HEALTH QUESTIONNAIRE-9 (PHQ-9) The patient reported some symptoms of depression; symptoms are not consistent with a major depressive episode. Patient reported being bothered by the following over the last 2 weeks: 1. Little interest or pleasure: Several Days 2. Feeling down, depressed or hopeless: Several Days 3. Trouble sleeping: More than half the days 4. Tired, low energy: Several Days 5. Poor appetite, over-eating: Not at all 6. Feelings of failure, guilt: Several Days 7. Trouble concentrating: Several Days 8. Motor retardation, agitation: Not at all 9. Thoughts better off /hurting self: Not at all PHQ-9 total score = 7 1-4 = minimal symptoms 5-9= mild symptoms 10-14= moderate symptoms 15-19= moderately severe symptoms 20-27= severe depressive symptoms The patient stated that the depressive symptoms made it somewhat difficult to work, take care of things at home, or get along with others. PHQ-9 Total Score (past 180 days): 07/27/2024 7 06/30/2024 12 GENERAL ANXIETY DISORDER-7 (STEPHANIE-7) Patient reported being bothered by the following over the last two weeks: 1. Feeling nervous, anxious or on edge: Not at all 2. Not being able to stop or control worrying: Several days 3. Worrying too much about different things: Several days 4. Trouble relaxing: More than half the days 5. Feeling restless (hard to sit still): Not at all 6. Becoming easily annoyed or irritable: Not at all 7. Afraid as if something awful might happen: Not at all STEPHANIE-7 total score = 4 0-4=minimal symptoms 5-9=mild symptoms 10-14=moderate symptoms 15-21=severe symptoms The patient stated that the anxiety symptoms made it somewhat difficult to work, take care of things at home, or get along with others. STEPHANIE-7 Total Score (past 180 days): 07/27/2024 4 06/30/2024 6 /wilbert/ JUAN DANIEL PURVIS PSY.D. Licensed Psychologist Signed: 07/27/2024 13:29 JUAN DANIEL PURVIS [facility] Jul 27, 2024 12:55 PM MENTAL HEALTH NOTE: [facility] STANDARD TITLE: MENTAL HEALTH NOTE DATE OF NOTE: JUL 27, 2024@12:55 ENTRY DATE: JUL 27, 2024@12:55:34 AUTHOR: JUAN DANIEL PURVIS EXP COSIGNER: URGENCY: STATUS: COMPLETED [facility] BRIEF THERAPY NOTE Has ADDENDA PRIMARY CARE MENTAL HEALTH INTEGRATION (PCMHI) CO-LOCATED COLLABORATIVE CARE FOLLOW UP NOTE [x] Riek-ws-Reul Date/Time: 07/27/24 at 12 Length of Session (minutes): 39 Current Contact Number: Brief Therapy Session Number: 2 TYPE: [x]Individual [x]Scheduled Session Number: 2 [id number] Assessment and Review of Presenting Problem Risk Assessment (e.g., lethality, suicidality/homicidality): C-SSRS Screening [place]-Suicide Severity Rating Scale (C-SSRS Screener) 1. Over the past month, have you [...] required due to responses to other questions. Brief Mental Status Exam (as applicable) Appearance and Behavior: Casual, fleeting-no eye contact Mood/Affect: Depressed, flat Sensorium (orientation, memory, concentration): WNL Intellectual Functioning: WNL Thought Processes/Regulation: WNL Kabetogama was reminded of the need to assess progress since last appointment and assess current status of presenting concern, which will be used to adjust treatment interventions if needed and inform primary care team of next steps. Measurement-Based Care: PHQ-9: Date Instrument Raw Trans Scale 06/30/2024 10:14 PHQ9 12 PHQ9 STEPHANIE-7: Date Instrument Raw Trans Scale 06/30/2024 10:14 STEPHANIE-7 6 Anxiety PCL-5: No data available for: PCL-5 AUDIT-C: Date Instrument Raw Trans Scale 06/29/2024 10:30 AUDC 0 Total Kabetogama was administered the following self-report instruments to further assess identified area of concern and the use of these instruments to assist in guiding treatment planning and assess progress was discussed with the Kabetogama. Patient Health Questionnaire - 9 (PHQ-9; Depression Measure) (Note: 0-4 Minimal: 5-9 Mild; 10-14 Moderate; 15-19 Moderately severe; 20-27 Severe) Kabetogama obtained a score of 7 which is indicative of mild symptoms. Generalized Anxiety Disorder-7 (STEPHANIE-7; Anxiety measure) (Note: 0-4 Minimal; 5-9 Mild; 10-14 Moderate; 15-21 Severe) Kabetogama obtained a score of 4 which is indicative of minimal symptoms. Pain Measure did not report pain as a topic of concern today. Homework Review Discussed with progress on interventions agreed upon at last appointment. did not exercise because he was too busy. Functional Assessment/Progress Toward Goals/Session Content -------- Discussed with status of presenting problem and it's impact on functioning and changes since the prior visit, including progress towards current goals. Kabetogama noted difficulty with sleeping due to his work schedule. MBC was gathered and reviewed. Pet Caretaker provided psychoeducation about therapy and the therapy process. Kabetogama noted he is lonely. Pet Caretaker utilized DE and problem- solving skills with to address this concern. Provisional Diagnosis/Diagnosis Per Chart Review Depressive Disorder Unspecified Anxiety Disorder Unspecified Intervention: Psychoeducation Brief Motivational Interviewing or Enhancement Therapy Problem Solving Treatment Plan and Follow-up -- Patient Goals: Increase Physical Activity, Make Healthy Choices for Eating Behaviors, Other: address loneliness Homework/Handouts: Homework is to do/try one social activity. Plans for Follow-up: Continue Brief Therapy with [facility] Provider Return to Clinic Follow-Up Appointment: 5/19 at 10:30 Visit Duration: 39 minutes Patient records have been reviewed. Informed/Reviewed with Kabetogama about MH resources in case of crisis including the Veterans Crisis Line number (press 1) and emergency room services. Outcome and recommendations will be discussed with the referring provider and other relevant PACT team members as needed. Please schedule in [facility] for 08/24 at 10:30. /wilbert/ JUAN DANIEL PURVIS PSY.D. Licensed Psychologist Signed: 07/27/2024 13:29 Receipt Acknowledged By: 07/27/2024 16:26 /wilbert/ MALACHI STAHL Advanced Manager Of Financial Reporting 07/27/2024 ADDENDUM STATUS: COMPLETED [facility] August 24, 2024@10:30 EASTERN SCHEDULED PLEASE SCHEDULE IN [facility] FOR 10:30. PER 07/27/24 RTC ORDER /wilbert/ MALACHI STAHL Advanced Manager Of Financial Reporting Signed: 07/27/2024 16:26 JUAN DANIEL PURVIS [facility]
--- OUTSIDE RECORDS SUMMARY | 2024-08-24 06:30 | XMS_ITS | Encounter Summary ---
Author Name [facility] [place] Organization [facility] [place] Address [address] [place] [address] Care Team Providers Care Dye Tub Operator Name Role Phone MALIK LOTT Primary Care [...] Ash's Name Patient's Relationship to Policy Ash [facility] BLUECARD PREFERRED PROVIDER ORGANIZAT ION (PPO) PPO 1 PLAN W/IHM AND Apr 08, 2024 [id number] 1EA [id number] [phone] OMERO OLVERA ER PATIENT [employer] ([id number]) PRESCRIPT ION TOYOT A Apr 08, 2024 [place] [id number] [phone] OMERO OLVERA ER PATIENT Selected Encounter This section includes the information on record at [place] for the Encounter. Date/Time Encounter Type Encounter Description Reason Provider Source August 24, 2024 10:30 AM PSYTX W PT 45 MINUTES [facility] INDIV ICD-10-CM F32.A Depression, unspecified ELISSA PURVIS D IHE Encounter Template Text not used by [place] Assessments - Encounter Diagnoses This section includes the primary and secondary diagnoses documented for the Encounter. Date/Time Primary/Secondary Diagnosis Diagnosis Name Provider Source August 24, 2024 11:19 AM PRIMARY Depression, unspecified ELISSA PURVIS [facility] August 24, 2024 11:19 AM SECONDARY Anxiety disorder, unspecified ELISSA PURVIS [facility] Plan of Treatment: Future Appointments (+ 6 months) and Future Tests (+/- 45 days) The Plan of Treatment section includes future care activities for the patient from [facility] [place] [facility]. This section includes future appointments and future orders which are active, pending or scheduled. Future Appointments This section includes appointments that were scheduled to occur 6 months from the date of the Encounter, up to a maximum of 20 appointments. The data comes from all [place] treatment facilities. Appointment Date/Time Appointment Type Appointme nt Facility Name September 02, 2024 10:32 AM AMBULATORY - MEDICINE [facility] Oct 05, 2024 10:30 AM AMBULATORY - PSYCHIATRY [facility] Social History: Smoking Status (Most current) and Tobacco Use (All prior to encounter date) This section includes the most current, and the historical, smoking and tobacco- related health factors from the [place] facility where the Encounter took place. Current Smoking Status This section includes the most current smoking, or tobacco-related health factor, from the [place] facility where the Encounter took place. Date/Time Current Smoking Status Comment Favio ity Jun 29, 2024 10:30 AM [place]-TOBACCO NEVER U SED CIGARETTES [facility] Tobacco Use History This section includes a history of the smoking, or tobacco-related health factors, that were collected on or before the date of the Encounter. The data comes from the [place] facility where the Encounter took place. Date/Time Smoking Status/Tobacco Use Comment F acalejandro Jun 29, 2024 10:30 AM [place]-TOBACCO NEVER U SED OTHER TYPE [facility] Encounter Notes: All associated encounter notes This section contains the clinical notes associated to the Encounter. Date/Time Encounter Note(s) Provider Source August 24, 2024 11:21 AM MENTAL HEALTH NOTE: LOCAL TITLE: PCMHI FOLLOW UP MONITOR NOTE STANDARD TITLE: MENTAL HEALTH NOTE DATE OF NOTE: AUGUST 24, 2024@11:21:04 ENTRY DATE: AUGUST 24, 2024@11:21:04 AUTHOR: JUAN DANIEL PURVIS EXP COSIGNER: URGENCY: STATUS: COMPLETED Assessments were sent to the via text/email. These assessments were completed by KATHYA OLVERA on their own device on 08/24/2024 10:36:55 AM. PATIENT HEALTH QUESTIONNAIRE-9 (PHQ-9) The patient reported some symptoms of depression; symptoms are not consistent with a major depressive episode. Patient reported being bothered by the following over the last 2 weeks: 1. Little interest or pleasure: Several Days 2. Feeling down, depressed or hopeless: Several Days 3. Trouble sleeping: Several Days 4. Tired, low energy: Several Days 5. Poor appetite, over-eating: Not at all 6. Feelings of failure, guilt: Several Days 7. Trouble concentrating: Not at all 8. Motor retardation, agitation: Not at all 9. Thoughts better off /hurting self: Not at all PHQ-9 total score = 5 1-4 = minimal symptoms 5-9= mild symptoms 10-14= moderate symptoms 15-19= moderately severe symptoms 20-27= severe depressive symptoms The patient stated that the depressive symptoms made it not at all difficult to work, take care of things at home, or get along with others. PHQ-9 Total Score (past 180 days): 08/24/2024 5 07/27/2024 7 06/30/2024 12 GENERAL ANXIETY DISORDER-7 (STEPHANIE-7) Patient reported being bothered by the following over the last two weeks: 1. Feeling nervous, anxious or on edge: Several days 2. Not being able to stop or control worrying: Several days 3. Worrying too much about different things: Several days 4. Trouble relaxing: Several days 5. Feeling restless (hard to sit still): Not at all 6. Becoming easily annoyed or irritable: Several days 7. Afraid as if something awful might happen: Not at all STEPHANIE-7 total score = 5 0-4=minimal symptoms 5-9=mild symptoms 10-14=moderate symptoms 15-21=severe symptoms The patient stated that the anxiety symptoms made it not at all difficult to work, take care of things at home, or get along with others. STEPHANIE-7 Total Score (past 180 days): 08/24/2024 5 07/27/2024 4 06/30/2024 6 /wilbert/ JUAN DANIEL PURVIS PSY.D. Licensed Psychologist Signed: 08/24/2024 11:45 JUAN DANIEL PURVIS [facility] August 24, 2024 11:13 AM MENTAL HEALTH NOTE: LOCAL TITLE: [facility] BRIEF THERAPY NOTE STANDARD TITLE: MENTAL HEALTH NOTE DATE OF NOTE: AUGUST 24, 2024@11:13 ENTRY DATE: AUGUST 24, 2024@11:13:43 AUTHOR: JUAN DANIEL PURVIS EXP COSIGNER: URGENCY: STATUS: COMPLETED PRIMARY CARE MENTAL HEALTH INTEGRATION (PCMHI) CO-LOCATED COLLABORATIVE CARE FOLLOW UP NOTE [x] [id number] Date/Time: 08/24/24 at 10:30 Length of Session (minutes): 38 Current Contact Number: Brief Therapy Session Number: 3 TYPE: [x]Individual [x]Scheduled Session Number: 3 [id number] Assessment and Review of Presenting Problem Risk Assessment (e.g., lethality, suicidality/homicidality): C-SSRS Screening [place]-Suicide Severity Rating Scale (C-SSRS Screener) 1. Over [...] Exam (as applicable) Appearance and Behavior: Casual, fleeting eye contact Mood/Affect: Depressed, flat Sensorium (orientation, memory, concentration): WNL Intellectual Functioning: WNL Thought Processes/Regulation: WNL Ravena was reminded of the need to assess progress since last appointment and assess current status of presenting concern, which will be used to adjust treatment interventions if needed and inform primary care team of next steps. Measurement-Based Care: PHQ-9: Date Instrument Raw Trans Scale 07/27/2024 12:10 PHQ9 7 PHQ9 06/30/2024 10:14 PHQ9 12 PHQ9 STEPHANIE-7: Date Instrument Raw Trans Scale 07/27/2024 12:10 STEPHANIE-7 4 Anxiety 06/30/2024 10:14 STEPHANIE-7 6 Anxiety PCL-5: No data available for: PCL-5 AUDIT-C: Date Instrument Raw Trans Scale 06/29/2024 10:30 AUDC 0 Total Ravena was administered the following self-report instruments to further assess identified area of concern and the use of these instruments to assist in guiding treatment planning and assess progress was discussed with the . Patient Health Questionnaire - 9 (PHQ-9; Depression Measure) (Note: 0-4 Minimal: 5-9 Mild; 10-14 Moderate; 15-19 Moderately severe; 20-27 Severe) Ravena obtained a score of 5 which is indicative of mild symptoms. Generalized Anxiety Disorder-7 (STEPHANIE-7; Anxiety measure) (Note: 0-4 Minimal; 5-9 Mild; 10-14 Moderate; 15-21 Severe) obtained a score of 5 which is indicative of mild symptoms. Pain Measure Ravena did not report pain as a topic of concern today. Homework Review Discussed with progress on interventions agreed upon at last appointment. Ravena relayed he has been extremely busy, so he has not exercised or engaged in one social activity. Functional Assessment/Progress Toward Goals/Session Content -------- Discussed with status of presenting problem and it's impact on functioning and changes since the prior visit, including progress towards current goals. relayed he has been tasked with learning a new job area at work, so he has been working 7 days per week. MBC was gathered and reviewed. Ravena asked about his exam. Manager Electronic explained that A does not do the evaluation, but A does. Ravena noted that he remembered after the last appointment that he was prescribed Hydroxyzine in the past, but he never took it. He explained he doesn't like medication. Manager Electronic provided psychoeducation about behavior activation and self-care time. noted difficulty saying no at work. Manager Electronic and Ravena discussed activities he can do for 30 minutes a day for himself. He plans to play a video game and spend time relaxing outside. Provisional Diagnosis/Diagnosis Per Chart Review Depressive Disorder Unspecified Anxiety Disorder Unspecified Intervention: Psychoeducation Brief Motivational Interviewing or Enhancement Therapy Cognitive Behavioral Therapy Supportive Psychotherapy/Reflection/V alidation Treatment Plan and Follow-up -- Patient Goals: Increase Physical Activity, Make Healthy Choices for Eating Behaviors, Other: address loneliness Homework/Handouts: Other: Homework is to take 30 minutes a day for a pleasant activity. Plans for Follow-up: Continue Brief Therapy with [facility] Provider Return to Clinic Follow-Up Appointment: 10/05 at 10:30 Visit Duration: 38 minutes Patient records have been reviewed. Informed/Reviewed with about resources in case of crisis including the Veterans Crisis Line number (press 1) and emergency room services. Outcome and recommendations will be discussed with the referring provider and other relevant PACT team members as needed. Please schedule in [facility] for 10/05 at 10:30. /wilbert/ JUAN DANIEL PURVIS PSY.D. Licensed Psychologist Signed: 08/24/2024 13:54 Receipt Acknowledged By: 08/24/2024 14:02 /wilbert/ JT HANNON ADVANCED DESTINATION SIGN REPAIRER JUAN DANIEL PURVIS [facility]
--- OUTSIDE RECORDS SUMMARY | 2024-09-02 06:32 | XMS_ITS | Encounter Summary ---
Author Name [facility] [place] Organization [place] Address [address] [place] [address] Care Team Providers Care Hourly Team Members Name Role Phone BIA FAIRCHILD Primary Care [...] Ash's Name Patient's Relationship to Policy Ash [facility] BLUECARD PREFERRED PROVIDER ORGANIZAT ION (PPO) PPO 1 PLAN W/IHM AND Apr 08, 2024 [id number] OMERO OLVERA ER PATIENT [employer] ([id number]) PRESCRIPT ION [place]YOT A Apr 08, 2024 [place] [id number] OMERO OLVERA ER PATIENT Selected Encounter This section includes the information on record at [place] for the Encounter. Date/Time Encounter Type Encounter Description Reason Provider Source September 02, 2024 10:32 AM REMOTE 30 DAY ECG REV/REPORT AMB ECG MONITORING ICD-10-CM R55 Syncope and collapse WENDIE GOMES [facility] Encounter Template Text not used by [place] Assessments - Encounter Diagnoses This section includes the primary and secondary diagnoses documented for the Encounter. Date/Time Primary/Secondary Diagnosis Diagnosis Name Provider Source September 02, 2024 11:02 AM PRIMARY Syncope and collapse KEIRA FERRER CHADAyo [facility] Plan of Treatment: Future Appointments (+ 6 months) and Future Tests (+/- 45 days) The Plan of Treatment section includes future care activities for the patient from all [place] [facility]. This section includes future appointments and future orders which are active, pending or scheduled. Future Appointments This section includes appointments that were scheduled to occur 6 months from the date of the Encounter, up to a maximum of 20 appointments. The data comes from all [place] treatment facilities. Appointment Date/Time Appointment Type Appointme nt Facility Name Oct 05, 2024 10:30 AM AMBULATORY - PSYCHIATRY [facility] Encounter Notes: All associated encounter notes This section contains the clinical notes associated to the Encounter. Date/Time Encounter Note(s) Provider Source September 03, 2024 11:33 AM PRIMARY CARE LETTE RS: LOCAL TITLE: PC LETTER TEST RESULTS STANDARD TITLE: PRIMARY CARE LETTERS DATE OF NOTE: SEPTEMBER 03, 2024@11:33 ENTRY DATE: SEPTEMBER 03, 2024@11:33:35 AUTHOR: BIA FAIRCHILD EXP COSIGNER: URGENCY: STATUS: COMPLETED [address] [id number] Mr. KATHYA OLVERA [address] [place] [address] SEPTEMBER 03, 2024 Dear Mr. KATHYA OLVERA Your cardiac event recorder was normal. Please call us if you have questions or problems. You can reach us at (toll free number) or [phone] (local number). If you are enrolled in [employer], and utilize those services, you may prefer to contact us by secure message. Thank you for your service to our Country. We are honored to be able to provide medical care to you. ASSESSMENT/FINDINGS: PATIENT WAS MONITORED FOR 30 DAYS USING A LOOPING EVENT RECORDER WITH NO PATIENT TRIGGERED EVENTS. RECORDING SHOW SINUS RHYTHM 52-121bpm WITH PVCs. NO SYMPTOMS REPORTED. PLAN: SUMMARY: NORMAL PROCEDURE SUMMARY: SINUS,PVCs Sincerely, /wilbert/ Bia Fairchild MD Primary Care Physician Patient Record Number [id number] BIA FAIRCHILD [facility] September 02, 2024 11:01 AM CARDIOLOGY NOTE: LOCAL TITLE: CARDIOLOGY CHART CHECK NOTE STANDARD TITLE: CARDIOLOGY NOTE DATE OF NOTE: SEPTEMBER 02, 2024@11:01 ENTRY DATE: SEPTEMBER 02, 2024@11:01:14 AUTHOR: KEIRA FERRER COSIGNER: URGENCY: STATUS: COMPLETED evt rec complete /wilbert/ KEIRA FERRER LEENA-EKG Signed: 09/02/2024 11:01 KEIRA FERRER-Ayo [facility]
--- OUTSIDE RECORDS SUMMARY | 2024-09-08 13:16 | XMS_ITS | Continuity of Care Document ---
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 1.73. CKD is diagnosed based on abnormaliti es of kidney structure or function, present for >3 months, with implication s for health and disease. CKD is classified and staged based on cause, eGFR and albuminuria (quantified as urine albumin to creatinine ratio). An eGFR >60 mL/min/1.73 m2 in the absence of increased urine albumin excretion or structural abnormaliti es does not represent CKD. eGFR CKD Interpretat ion (mL/min/1.7 3 m2) stage >=90 G1 Normal 60-89 G2 Mild decrease 45-59 G3A Mild to moderate decrease 30-44 G3B Moderate to severe decrease 15-29 G4 Severe decrease <15 G5 Kidney failure Ordering Provider: LA NENA GRANADOS II Report Released Date/Time: May 04, 2024 10:54 AM Reporting Lab: [facility] RE[facility] [address] [address] Performing Lab: [facility] RE[facility] [address] [address] [facility] THYROID PROFILE FREE T4 1.07 ng/mL 0.70 - 1.48 05/04 Specimen Type: PLASMA Comment: Estimated Glomerular Filtration Rate (eGFR) calculated using the 2020 Chronic Kidney Disease-Epi demiology (CKD-EPI) Collaborati on creatinine equation; units of measure are mL/min/1.73 m2. Results are only valid for adults (>=18 years) whose serum creatinine is in a steady state. eGFR calculation s are not valid for patients with acute kidney injury and for patients on dialysis. Creatinine- based estimates of kidney function may also be inaccurate in patients with reduced creatinine generation due to decreased muscle mass (e.g., malnutritio n, severe hypoalbumin emia, sarcopenia, chronic neuromuscul ar disease, amputations , severe heart failure or liver disease) and in patients with increased creatinine generation due to increased muscle mass (e.g., muscle builders, anabolic steroids) or increased dietary intake. As drug clearance is proportiona l to total GFR and not GFR indexed to body surface area (BSA), in individuals with a BSA substantial ly different than 1.73 m2, drug dosing should be based on the reported eGFR value de-indexed from BSA by multiplying by the individual' s BSA and dividing by 1.73. CKD is diagnosed based on abnormaliti es of kidney structure or function, present for >3 months, with implication s for health and disease. CKD is classified and staged based on cause, eGFR and albuminuria (quantified as urine albumin to creatinine ratio). An eGFR >60 mL/min/1.73 m2 in the absence of increased urine albumin excretion or structural abnormaliti es does not represent CKD. eGFR CKD Interpretat ion (mL/min/1.7 3 m2) stage >=90 G1 Normal 60-89 G2 Mild decrease 45-59 G3A Mild to moderate decrease 30-44 G3B Moderate to severe decrease 15-29 G4 Severe decrease <15 G5 Kidney failure Ordering Provider: LA NENA GRANADOS II Report Released Date/Time: May 04, 2024 10:54 AM Reporting Lab: [facility] [address] [facility] [address] Performing Lab: [facility] [address] [facility] [address] [facility] Infect us Disease Source of Test.LC Other (01/08/22 10:55 AM) 01/08 [place] Infect us Disease HIV-1/2 AG/AB 4G CDD LC NEGATIVE 01/08 Result Comment: Performed At: 1 [facility] [address] [place] [id number] KEIRY WATERS PHD Ph:[phone] [address] [place] [address] Shawn Frank Vital Signs Combined list of inpatient and outpatient Vital Signs from Department of Defense and Veterans Affairs, ranging from 12 months to all on record, depending upon the facility. Vital Sign Value Date Comments Source Systolic Blood Pressure 116 mm[Hg] 01/09/20 15:22:00 [facility] Diastolic Blood Pressure 66 mm[Hg] 15:22:00 [facility] [place] [place] Serna Temperature Temporal Artery 36.5 Stacy 01/08/2022 15:22:[address] [place] [address] Shawn Serna Peripheral Pulse Rate 80 bpm 01/08/2022 15:22:00 [facility] [place] [place] Shawn Serna Peripheral Pulse Rate 76 bpm 01/09/2022 19:23:[address] [place] [address] Shawn Serna Systolic Blood Pressure 106 mm[Hg] 01/10/20 19:23:00 [facility] [place] [place] Serna Diastolic Blood Pressure 66 mm[Hg] 19:23:00 [facility] [place] [place] Shawn Serna Mean Arterial Pressure, Calc 79 mm[Hg] 01/09/2022 19:23:00 [facility] Shawn Serna Temperature Oral 37.0 Stacy 01/09/2022 19:23:00 [facility] Shawn Serna SYSTOLIC BLOOD PRESSURE 135 06/30/19 10:29:25 [facility] DIASTOLIC BLOOD PRESSURE 90 025 10:29:25 [facility] PULSE OXIMETRY 96 06/29/2024 10:29:25 [facility] WEIGHT 224 06/29/2024 10[facility]29:25 [facility] BMI 30 kg/m2 06/29/2024 10:29:25 [facility] PAIN 0 06/29/2024 10:29:25 [facility] HEIGHT 72 06/29/2024 10:29:25 [facility] TEMPERATURE 97.7 06/29/2024 10:29:25 [facility] PULSE 75 06/29/2024 10:29:25 [facility] RESPIRATION 16 06/29/2024 10:29:25 [facility] Encounters Combined list of: 1) Encounters from Department of Veterans Affairs facilities going backup to the last 18 months, not all VA inpatient encounters are included; 2) Encounters from the Department of Defense facilities going backup to 280 months. Location Location Details Encounter Type Encounter Number Reason For Visit Attending Provider ADM Date DC Date Status Disposition Source [place] OUTPATIENT [id number] Notes Entered by: TERESSA HORTON 25 Feb 2018 0618 ------- ------- ------- ------- -- Optomet ry CINDY Felipe 02/25 Released w/o Limitations [place] OUTPATIENT [id number] Notes Entered by: GOLDEN SCHREIBER 25 Feb 2018 0719 ------- ------- ------- ------- -- [id number] DAY 1 038 KEVIN TAMAYO 02/25 Released w/o Limitations [facility] Héctor Hernandez [facility] [place]) [facility] Héctor Hernandez [facility] [place] Conserv[place] OUTPATIENT [id number] Notes Entered by: Melodie LINDSAY 26 Feb 2018 1052 ------- ------- ------- ------- -- 038 ADAM LINDSAY 02/26 Released w/o Limitations [facility] Héctor Hernandez [facility] [place] [facility] Héctor Hernandez [facility] [place] OUTPATIENT [id number] Notes Entered by: PENG ESPINO 28 Feb 2018 0407 ------- ------- ------- ------- -- [id number] DAY 3 038 YSABEL OLEARY 02/28 Released w/o Limitations [facility] Héctor Hernandez [facility] [place] [facility] Héctor Hernandez [facility] [place] OUTPAT[place] [id number] Notes Entered by: NISSA CHOI 11 Mar 2018 0710 ------- ------- ------- ------- -- THROAT/ NAUSEA/ FEVER/C KIMBERLEE BAUGH 03/11 Released w/o Limitations [facility] Héctor Hernandez [facility] [place]) [facility] Héctor Hernandez [facility] [place] TELE CONSULT [id number] Notes Entered by: Arsenio GARRETT 12 Mar 2018 1018 ------- ------- ------- ------- -- Medicat ion pickup GLADYS GARRETT 03/12 Referred for Appointment [facility] Héctor Hernandez [facility] LYNSEY Christie(C-TM C Er Module) [facility] Héctor Hernandez [facility] LYNSEY Christie(C-TMC Er Module) OUTPATIENT [id number] Notes Entered by: YSABEL REY 13 Mar 2018 0835 ------- ------- ------- ------- -- LOD LIT HEADED KIMBERLEE FOFANA 03/13 Released w/o Limitations [facility] Héctor Hernandez [facility] [place]) [facility] Héctor Hernandez [facility] LYNSEY Christie(C-TMC Er Module) TELE CONSULT [id number] Notes Entered by: Arsenio GARRETT 13 Mar 2018 1144 ------- ------- ------- ------- -- MRI sched ed for 17 Mar 2000 ALMA VASQUEZ 03/13 Other Not Elsewhere Classified [facility] Héctor Hernandez [facility] LYNSEY Christie(C-TM C Er Module) [facility] Héctor Hernandez [facility] LYNSEY Christie(C-TMC Er Module) OUTPATIENT [id number] Notes Entered by: NISSA CHOI 18 Mar 2018 0730 ------- ------- ------- ------- -- LOD F/U MRI RESULTS KIMBERLEE LIVE 03/18 Released w/o Limitations [facility] Héctor Hernandez [facility] [place] [facility] Héctor Hernandez [facility] LYNSEY Christie(C-TMC Er Module) OUTPATIENT [id number] Notes Entered by: Harsh SALVADOR 26 Mar 2018 0722 ------- ------- ------- ------- -- POSS STREP THROAT KIMBERLEE LIVE 03/26 Released w/o Limitations [facility] Héctor Hernandez [facility] [place] OUTPATIENT [id number] Notes Entered by: Harsh SALVADOR 23 Apr 2018 0725 ------- ------- ------- ------- -- BONE MUSCLE KIMBERLEE LIVE 04/23 [place]ased [place] Limitations [place] OUT[place] [id number] Notes Entered by: YSABEL REY 08 May 2018 0815 ------- ------- ------- ------- -- MELISSA ARAIZA 05/08 [place]ick [place] Home[place] OUTPATIENT [id number] Notes Entered by: PENG ESPINO 19 May 2018 0428 ------- ------- ------- ------- -- A CO 1-58 TWIN/MM R/VIGNESH VANNESSA GOINS 05/19 [place]ased w/o Limitations [place] [address](Opt ometry [facility] OUTPATIENT [id number] Notes Entered by: IRLANDA HARRIS 12 Jun 2018 0622 ------- ------- ------- ------- -- eye exam LORE OSBORN 06/12 Released w/o Limitations [facility] [place] [address](O ptometr y [facility] [place] [address](AMH [place]) OUTPATIENT [id number] SCALL/D 232 MARGARITA RAMEY E 06/19 Released w/o Limitations [facility] [place] [address](A MH S01B [place] ) [place] [address]([facility] S01B [place]) OUTPATIENT [id number] Injurie d pelvias yesterd ay S/p fall ESTEEDWINA, VONNIE R 06/23 Released w/o Limitations [facility] [place] [address](A MH S01B [place] ) [place] [address](PT [facility] in [facility]) OUTPATIENT [id number] Sprain of unspeci fied ligamen t of right ankle, initial encount er BRENDA LAN E 07/01 Released with Work/Duty Limitations [facility] [place] [address]([place] [address](PT [facility] in [facility]) OUTPATIENT [id number] right ankle/h ip LOUIE , AMOS L 07/09 Released w/o Limitations [facility] [place] [address]([place] [address]([facility] S01B [place]) OUTPATIENT [id number] SCALL SAHIL NIEVES J 07/14 Immediate Referral [facility] [place] [address](A S01B [place] ) [place] [address](PT [facility] in [facility]) OUTPATIENT [id number] right ankle/h ip VILLA, TAEYEONG 07/16 Released w/o Limitations [facility] [place] [address]([place] [address](PT [facility] in [facility]) OUTPATIENT [id number] right ankle/h ip LANCAMELIA JAQUEZDY E 07/22 Released with Work/Duty Limitations [facility] [place] [address](P T [place] in [facility]) [place] [address](Shabbir rology [facility]) OUTPATIENT [id number] Consult /bkd via Drill FABBYJulisa. Ken. Roman @. SARTHAK NAGY 07/30 Released w/o Limitations [facility] [place] [address](N eurolog y [facility]) [place] [address](AMH S01B [place]) OUTPATIENT [id number] cough, vomitin g, joint pain x 24 hrs SALRAUDEL SALVADOR L 08/13 Sick at Home/Quarter s [facility] [place] [address](A MH S01B [place] ) [place] [address](PT [facility] in [facility]) OUTPATIENT [id number] right ankle LAN, BRENDA E 08/18 Released w/o Limitations [facility] [place] [address](P T [place] in [facility]) [place] [address](AMH S01B [place]) OUTPATIENT [id number] 5 SCALL/0 708 EZEQUIEL SAHIL J 08/20 Released w/o Limitations [facility] [place] [address](A MH S01B [place] ) [place] [address](AMH S01B [place]) TELE CONSULT [id number] Notes Entered by: ANN WALDROP 20 Aug 2018 1454 ------- ------- ------- ------- -- CXR results , new med in pharmac y ALYSSA WALDROP 08/20 Released w/o Limitations [facility] [place] [address](A MH S01B [place] ) [place] [address]([facility] Primary Care Clinic [facility]) OUTPATIENT [id number] Notes Entered by: DAVID REY 22 Sep 2018 0832 ------- ------- ------- ------- -- SHELBY SYKES 09/22 Released w/o Limitations [facility] [place] [address](S Primary Care Clinic [facility]) Dave Breaux r [facility] [place] OUTPATIENT [id number] right elbow pain GOLDEN ROSENBERG E 10/15 Released with Work/Duty Limitations Dave judd [facility] ([facility]B [facility] Dave Breaux r [facility] [place] OUTPATIENT [id number] follow up right elbow pain LEOBARDO MELO R 10/20 Released w/o Limitations Dave judd [facility] [place] Dave Breaux r [facility] [place] OUTPATIENT [id number] hip pain LEOBARDO MELO R 11/10 Released with Work/Duty Limitations Dave Valladares [facility] [place]) Dave Breaux r [facility] [place] OUTPATIENT [id number] Left Leg/Rig ht Hip Pain SOHAN BRAND E 01/12 Released with Work/Duty Limitations Dave Valladares [facility] [place]) Dave Breaux r [facility] [place] OUTPATIENT [id number] Bloody Dischar ge from Left Inner Ear [place] KHALIL 02/02 Released w/o Limitations Dave Valladares [facility] [place]) Dave Breaux r [facility] [place] OUTPATIENT [id number] f/u [place] KHALIL 02/04 Released w/o Limitations Dave Valladares [facility] [place]) Dave Breaux r [facility] [place]) OUTPATIENT [id number] Notes Entered by: Tu KOHLER 17 Feb 2019 0856 ------- ------- ------- ------- -- FLU SHOT ROSA VILLAFANA Estelle 02/17 Released w/o Limitations D. D. Vaheo [facility] 01 A [facility]) Dave hines [facility]01 A [facility]) OUTPATIENT [id number] bad cold sx SOHAN BRAND Nathalia 02/24 Released w/o Limitations D. D. Popenho [facility] 01 A [facility]) Dave Breaux r [facility](Optome try-Conne [facility]) OUTPATIENT [id number] acd/eye exam CAMERON YSABEL M 03/18 Released w/o Limitations D. D. Vaheo [facility] Dave hines [facility]01 A [facility]) OUTPATIENT [id number] [place] ALLEN 05/01 Released w/o Limitations D. DJaren Cottero [facility] 01 A [facility]) Dave hines [facility](Hearin g Conservat ion Clinic) OUTPATIENT [id number] MADHU CORTEZ 05/05 [facility] w/o Limitations [facility] OUTPATIENT [id number] F2F CHILLS, NAUSEA, COUGHIN G,SWOLL EN THROAT. [phone] TAN COREAS 03/07 Sick at Home/Quarter s [facility]) [facility] Hearing Program) OUTPATIENT [id number] Notes Entered by: SOFIA SAUL 09 Mar 2021 0723 ------- ------- ------- ------- -- FOLLOW UP RISHI ACOSTA 03/09 Released w/o Limitations [facility](SR P Hearing Program ) [facility] Deploymen t [facility]) OUTPATIENT [id number] Notes Entered by: Monserrat BARDALES 09 Mar 2021 0816 ------- ------- ------- ------- -- JAYNE GARCÍA 03/09 Released w/o Limitations [facility] P Deploym ent [facility]) [facility]) OUTPATIENT [id number] Notes Entered by: CESAR MAI 15 Mar 2021 1229 ------- ------- ------- ------- -- HAY RAYA 03/15 Released w/o Limitations [facility](SR P Deploym ent Clinic) [facility] OUTPATIENT [id number] Theater Provider 04/11 Released w/o Limitations [facility] OUTPATIENT [id number] Theater Provider 04/12 Released w/o Limitations [facility] OUTPATIENT [id number] Theater Provider 11/07 Sick at Home/Quarter s [facility] OUTPATIENT [id number] Theater Provider 11/16 Released with Work/Duty Limitations Theater Facilit y [facility] Outpatient Encounter [id number] 02/27 [place] Outpatient Encounter [id number] 02/27 [place] [facility] En[facility] [id number] 03/26 [place] [facility] Out[facility] Encounter [id number] Diagnos is: ICD-10- CM Z77.110 Contact with and (suspec camelia) exposur e to air polluti on [place] LLIAM E II 05/04 [place] [facility] HLTH BHV IVNTJ FAM EA ADDL [id number] Diagnos is: ICD-10- CM Z65.5 Exposur e to disaste r, war and other hostili ties GRAJEDA,KODY ITH L 05/04 [place] [facility] Outpatient Encounter [id number] 05/05 [place] Out[facility] Encounter [id number] 05/27 [place] OFFICE O/P NEW MOD 45 MIN [id number] Diagnos is: ICD-10- CM R55 Syncope and collaps e LOTT,NAN CY K 06/29 [place] [facility] PSYTX W PT 45 MINUTES [id number] Diagnos is: ICD-10- CM F41.9 Anxiety disorde r, unspeci fied LOLY,JUST IN F 06/29 [place] [facility] Outpatient Encounter [id number] 06/29 [place] [facility] Outpatient Encounter [id number] 06/30 [place] [facility] PSYTX W PT 30 MINUTES [id number] Diagnos is: ICD-10- CM F32.A Depress ion, unspeci fied AMBAR PURVIS 07/06 [place] [facility] TTE W/DOPPLER COMPLETE [id number] Diagnos is: ICD-10- CM R06.09 Other forms of dyspnea BRANDI HUMPHRIES Natahlia W 07/06 [place] ECG/REVIEW INTERPRET ONLY [id number] Diagnos is: ICD-10- CM R55 Syncope and collFAHEEM Hancock IG A 07/07 [place] PSYTX W PT 45 MINUTES [id number] Diagnos is: ICD-10- CM F32.A Depress ion, unspeci fied PURVISAMBAR PHANIE D 07/27 [place] [facility] PSYTX W PT 45 MINUTES [id number] Diagnos is: ICD-10- CM F32.A Depress ion, unspeci fied PURVIS,AMBAR PHANIE D 08/24 [place] [facility] REMOTE 30 DAY ECG REV/REPORT [id number] Diagnos is: ICD-10- CM R55 Syncope and FAHEEM Bernabe IG A 09/02 [place] Procedures Combined list of: 1) Procedures from Department of [facility] Affairs facilities going back up to thelast 18 months, not all VA non-surgical procedures are included; 2) All procedures from the Department of Defense facilities. Procedure Procedure Type Code Date Perfomer Comments Sourc e PNEUMONIA ADMITTED [facility] 2018 NO COMPLICATIOANS 8A-[facility] Shawn Frank TONSILLECTOMY AND ADNOIDECTOMY REMOVAL AGE 15/14 NO COMPLICATIONS -[facility] Shawn Frank WISDOM TEETH EXTRACTED (4) FEB 2019 NO COMPLICATINS [facility] Shawn Frank BRIEF EMOTIONAL/BEHAVIORA L ASSESSMENT (EG, DEPRESSION INVENTORY, ATTENTION-DEFICIT/H YPERACTIVITY DISORDER [ADHD] SCALE), WITH SCORING AND DOCUMENTATION, PER STANDARDIZED INSTRUMENT 2020 [facility] PURE TONE AUDIOMETRY (THRESHOLD), AUTOMATED; AIR ONLY 2020 [facility] MEASLES, MUMPS AND RUBELLA VIRUS VACCINE (MMR), LIVE, FOR SUBCUTANEOUS USE 2018 [facility] INFLUENZA VIRUS VACCINE, QUADRIVALENT (IIV4), SPLIT VIRUS, 0.5 ML DOSAGE, FOR INTRAMUSCULAR USE 2017 [facility] AUDIOMETRIC TESTING OF GROUPS 2017 [facility] COLLECTION OF VENOUS BLOOD BY VENIPUNCTURE 2017 [facility] FITTING OF SPECTACLES, EXCEPT FOR APHAKIA; MONOFOCAL 2017 [facility] EAR MOLD/INSERT, NOT DISPOSABLE, ANY TYPE 2019 DoD REMOVAL IMPACTED CERUMEN USING IRRIGATION/LAVAGE, UNILATERAL 2019 DoD PSYCHIATRIC DIAGNOSTIC EVALUATION 2019 [facility] INJECTION, KETOROLAC TROMETHAMINE, PER 15 MG 2019 [facility] FITTING OF SPECTACLES, EXCEPT FOR APHAKIA; MONOFOCAL 2018 [facility] ELECTROCARDIOGRAM, ROUTINE ECG WITH AT LEAST 12 LEADS; WITH INTERPRETATION AND REPORT 2018 [facility] INFLUENZA VIRUS VACCINE, QUADRIVALENT (IIV4), SPLIT VIRUS, PRESERVATIVE FREE, 0.5 ML DOSAGE, FOR INTRAMUSCULAR USE 2018 [facility] PSYCHOTHERAPY, 60 MINUTES WITH PATIENT 2018 [facility] PSYCHIATRIC DIAGNOSTIC EVALUATION 2018 [facility] BRIEF EMOTIONAL/BEHAVIORA L ASSESSMENT (EG, DEPRESSION INVENTORY, ATTENTION-DEFICIT/H YPERACTIVITY DISORDER [ADHD] SCALE), WITH SCORING AND DOCUMENTATION, PER STANDARDIZED INSTRUMENT 2018 DoD PSYCHIATRIC DIAGNOSTIC EVALUATION 2018 [facility] Psychiat Therapy Indiv Appr 45-50 Min W/ Med Eval Managemt Psychiat Therapy Indiv Appr 45-50 Min W/ Med Eval Managemt [id number] 2018 CAROLEE PEREIRA DoD Dangerousne A e ment Suicide Risk Dangerousness Assessment Suicide Risk 3085F 2018 CAROLEE PEREIRA DoD Psychiatric Evaluation Review of Records and Reports Psychiatric Evaluation Review of Records and Reports 19751 2018 SWETHA BLUNT Dangerousne A e ment Suicide Risk Dangerousness Assessment Suicide Risk 3085F 2018 CAROLEE PEREIRA Dangerousne A e ment Suicide Risk Dangerousness Assessment Suicide Risk 3085F 2018 BREE MCGUIRE DoD Psychiatric Therapy Individual Approximately 45-50 Minutes Psychiatric Therapy Individual Approximately 45-50 Minutes [id number] 2018 BREE MCGUIRE [facility] Erica butler Suicide Risk Dangerousness Assessment Suicide Risk 3085F 2018 BREE MCGUIRE [facility] Psychiatric Therapy Individual Approximately 45-50 Minutes Psychiatric Therapy Individual Approximately 45-50 Minutes [id number] 2018 BREE MCGUIRE Psychiatric Therapy Individual Approximately 20-30 Minutes Psychiatric Therapy Individual Approximately 20-30 Minutes [id number] 2018 BREE MCGUIRE [facility] Psychiatric Therapy Individual Approximately 20-30 Minutes Psychiatric Therapy Individual Approximately 20-30 Minutes [id number] 2018 BREE MCGUIRE [facility] Physical Medicine Physical Therapy Re-Evaluation Physical Medicine Physical Therapy Re-Evaluation 23070 2018 ANA TIERNEY [facility] Psychiatric Evaluation Psychiatric Evaluation 50295 2018 BREE MCGUIRE [facility] Physical Therapy: ___ Se ion Segments, 15 Minutes Each Physical Therapy: ___ Session Segments, 15 Minutes Each [id number] 2018 MILES MAURICE Physical Medicine Physical Therapy Re-Evaluation Physical Medicine Physical Therapy Re-Evaluation 40352 2018 MILES MAURICE Physical Therapy Mobilization Joint Physical Therapy Mobilization Joint 78203 2018 ROBERT VILLATITOMOUSTAPHA [facility] Physical Therapy: ___ Se ion Segments, 15 Minutes Each Physical Therapy: ___ Session Segments, 15 Minutes Each [id number] 2018 DAISY VJMOUSTAPHA [facility] Psychiat Ther Indiv Interactive Approximately 45-50 Minutes Psychiat Ther Indiv Interactive Approximately 45-50 Minutes [id number] 2018 MARIA L GALINDO [facility] Psychiatric Evaluation Review of Records and Reports Psychiatric Evaluation Review of Records and Reports 95844 2018 MARIA L GALINDO [facility] Physical Therapy Mobilization Joint Physical Therapy Mobilization Joint 34833 2018 AMOS PALMA [facility] Physical Therapy: ___ Se ion Segments, 15 Minutes Each Physical Therapy: ___ Session Segments, 15 Minutes Each [id number] 2018 AMOS PALMA [facility] Physical Therapy: ___ Se ion Segments, 15 Minutes Each Physical Therapy: ___ Session Segments, 15 Minutes Each [id number] 2018 MILES MAURICE Physical Therapy Mobilization Joint Physical Therapy Mobilization Joint 75294 2018 MILES MAURICE [facility] Fitting Monofocals (Not For Aphakia) [facility] Fitting Monofocals (Not For Aphakia) 72838 2018 LORE OSBORN Determination Of Refractive State Determination Of Refractive State 01441 2018 LORE OSBORN Ophthalmological New Patient Start Comprehensive Care Ophthalmological New Patient Start Comprehensive Care 09341 2018 LORE OSBORN Vaccines Viral Measles, Mumps and Rubella, Live Vaccines Viral Measles, Mumps and Rubella, Live 59769 2018 VANNESSA GOINS [facility] Vaccines Viral Varicella (Active) Vaccines Viral Varicella (Active) 92328 2018 VANNESSA GOINS [facility] Immunization Administration One Vaccine Immunization Administration One Vaccine 32083 2018 VANNESSA GOINS [facility] Immunization Administration Each Additional Vaccine Immunization Administration Each Additional Vaccine 44275 2018 VANNESSA GOINS [facility] Hepatitis A And Hepatitis B (Intramuscular Use) Adult Dosage Hepatitis A And Hepatitis B (Intramuscular Use) Adult Dosage 99406 2018 VANNESSA GOINS [facility] Vaccines Adenovirus Type 7 Live, For Oral Use Vaccines Adenovirus Type 7 Live, For Oral Use 05866 2017 CYPRESSYSABEL [facility] Vaccines Adenovirus Type 4 Live, For Oral Use Vaccines Adenovirus Type 4 Live, For Oral Use 33162 2017 OLEARYYSABEL [facility] Vaccines Viral Polio, Inactivated (Salk) Vaccines Viral Polio, Inactivated (Salk) 47883 2017 OLEARYYSABEL MORENO [facility] Vaccines Viral Measles, Mumps and Rubella, Live Vaccines Viral Measles, Mumps and Rubella, Live 19697 2017 OLEARYYSABEL MORENO [facility] Tdap Vaccine Tdap Vaccine 79047 2017 [facility] YSABEL [facility] Vaccines Viral Varicella (Active) Vaccines Viral Varicella (Active) 10462 2017 YSABEL OLEARY [facility] Immunization Administration Each Additional Vaccine Immunization Administration Each Additional Vaccine 09413 2017 YSABEL OLEARY [facility] Hepatitis A And Hepatitis B (Intramuscular Use) Adult Dosage Hepatitis A And Hepatitis B (Intramuscular Use) Adult Dosage 80088 2017 OLEARYYSABEL MORENO [facility] Immunization Administration One Vaccine Immunization Administration One Vaccine 65242 2017 YSABEL OLEARY Meningococcal Polysacch Diphtheria Toxoid Conjugate Vaccine 2017 YSABEL OLEARY [facility] Audiometry Group Testing Audiometry Group Testing 54250 2017 ADAM LINDSAY [facility] Venipuncture Venipuncture 99022 2017 KEVIN TAMAYO [facility] [employer] Fitting Monofocals (Not For Aphakia) [facility] [facility] Fitting Monofocals (Not For Aphakia) 31133 2017 CINDY YANCEY Screening Test Of Visual Acuity, Quantitative, Bilateral Screening Test Of Visual Acuity, Quantitative, Bilateral 15491 2017 CINDY YANCEY Threshold Audiogram (Pure Tone) Automated Threshold Audiogram (Pure Tone) Automated 0208T RISHI ACOSTA [facility] [employer] Fitting Monofocals (Not For Aphakia) [facility] Fitting Monofocals (Not For Aphakia) 04732 CESAR MAI [facility] Psychiatric Evaluation Psychiatric Evaluation 42409 HOMER PHILLIPS [facility] Psychiatric Therapy Individual Approximately 45-50 Minutes Psychiatric Therapy Individual Approximately 45-50 Minutes 05103 HOA ZHONG [facility] Hepatitis A And Hepatitis B (Intramuscular Use) Adult Dosage Hepatitis A And Hepatitis B (Intramuscular Use) Adult Dosage 36684 LEOBARDO MELO [facility] Immunization Administration One Vaccine Immunization Administration One Vaccine 52730 LEOBARDO MELO Screening Test Of Visual Acuity, Quantitative, Bilateral Screening Test Of Visual Acuity, Quantitative, Bilateral 75582 BARRY HAIR [facility] Ophthalmological New Patient Start Comprehensive Care Ophthalmological New Patient Start Comprehensive Care 85744 YSABEL BARNES Determination Of Refractive State Determination Of Refractive State 29330 YSABEL BARNES Screening Test Of Visual Acuity, Quantitative, Bilateral Screening Test Of Visual Acuity, Quantitative, Bilateral 33953 [place] KHALIL Uncorrected Vision. Both: 20/70 Left: 20/100 Right: 20/70 Corrected Vision. Both: 20/20 Left: 20/25 Right: 20/25 [facility] Ear Protector Attenuation Measurements Ear Protector Attenuation Measurements 16577 MADHU MCALLISTER Patient education, not otherwise cla ified, non-physician provider, group, per se ion JOSIANE MCALLISTERRA A [facility] Ear mold/insert, not disposable, any type HAZLEHURST MADHU RUTLEDGE [facility] Cerumen Removal Left Ear Irrigation Cerumen Removal Left Ear Irrigation 95840 [place] KHALIL Pt to treatment room verified full name and . Left ear canal irrigated with 50% H2O and 50 % hydrogen peroxide solution. Using a 60 cc syringe and solution and a 20 ga catheter, the ear canal was irrigated under slight pressure and cleared of impaction. Large amount of hard & formed brown wax removed. Pt reports no pain and no dizziness. Able to visualize TM(s). MD/PA informed. [facility] Cerumen Removal Right Ear Irrigation Cerumen Removal Right Ear Irrigation 49106 [place] KHALIL Pt to treatment room verified full name and . Right ear canal irrigated with 50% H2O and 50 % hydrogen peroxide solution. Using a 60 cc syringe and solution and a 20 ga catheter, the ear canal was irrigated under slight pressure and cleared of impaction. Large amount of hard & formed brown wax removed. Pt reports no pain and no dizziness. Able to visualize TM(s). MD/PA informed. [facility] Social History Combined list of available smoking, tobacco, and other social history from [facility] and [facility] facilities. Social History Type Response Date Comment [facility] e Tobacco smoking status NHIS HI-TOBACCO NEVER USED CIGARETTES 06/29/2024 [facility] History of tobacco use HI-TOBACCO NEVER USED OTHER TYPE 06/29/2024 [facility] Sex Representation Male (finding) 08/09/2021 Un known Organization Tobacco Never-cigarette user Cigarette use:. Never-other tobacco user (not cigarettes) Other Tobacco use:. Ambulatory Pharmacy Sexual Orientation Ambula tory Pharmacy Gender identity Ambulator y Pharmacy This section is an empty social history section. DoD Assessment and Plan Combined list of future care activities from [facility] Defense and Veterans Affairs facilities (e.g., assessment and plan notes, appointments, orders, and referrals). Additional future care activities may be listed in the Plan of Care section. Result Assessment and Plan Date Source Assessment and Plan No data available for this section 09/08/2024 Ambulatory Pharm[facility] Plan of Care List of future care activities from [facility] of Veterans Affairs facilities. Additional future care activities may be listed in the Assessment and Plan section. Date/Time Care Activity Care Activity Detail Facili ty 10/05/2024 AMBULATORY - [facility] Status Combined list of recent functional and cognitive assessments recorded at [facility] Functional Dickinson Measurement (FIM) Scale: 1 = Total Assistance (Subject = 0% +), 2 = Maximal Assistance (Subject = 25% +), 3 = Moderate Assistance (Subject = 50% +), 4 = Minimal Assistance (Subject = 75% +), 5 = Supervision, 6 = Modified Dickinson (Device), 7 = Complete Dickinson (Timely, Safely). Assessment Date/Time Source Assessment Type Assessment Skill Assessment Score Assessment Details No data available for this section
--- OUTSIDE RECORDS SUMMARY | 2024-09-08 13:17 | XMS_ITS | Data Portability ---
Author Organization [facility] KIARA Vázquez ADMIN Address [address] [place] [address] Care Team Providers Care Marketing Support Specialist Name Role Phone RONALD YARED Primary Care Provider Assessment No assessment recorded. Plan of Treatment Reminders Order Date Submit Date Provider Last Modified By Organization Details Last Modified Time Details Appointments None recorded. Lab thyroid panel, serum 2023 024 JOSE [facility], [address], [place], [address], 4 11:14:08 TSH + free T4, serum 2023 024 JOSE [facility], [address], [address], [place], [address], 4 08:22:40 TSH, ultra-sensi tive, serum 2023 024 [email or web address] d19 [facility], [address], [address], [place], [address], 4 14:39:10 TSH + free T4, serum 2023 024 JOSE [facility], [address], [place], [address], 4 13:50:07 CMP, serum or plasma 2023 024 JOSE [facility], [address], [place], [address], 13:50:07 Referral None recorded. Procedures None recorded. Surgeries None recorded. Imaging None recorded. Medication Orders levothyroxi ne 25 mcg tablet 2023 024 [facility]/Pharmacy #[id number], [address] [place], [address], 4 14:52:53 levothyroxi ne 25 mcg tablet 2023 024 [facility]/Pharmacy #[id number], [address] [place] [address], [address], 4 14:43:18 tretinoin 0.05 % topical cream 2023 024 [facility]/Pharmacy #[id number], [address] [place] [address], [address], 4 14:28:30 levothyroxi ne 25 mcg tablet 2023 024 [email or web address] [facility]/Pharmacy #2332, [address] [place] [address], [address], 4 13:47:21 albuterol sulfate HFA 90 mcg/actuati on aerosol inhaler 2023 024 [facility]armacy #2332, [address] [place] [address], [address], 4 13:47:28 Patient TargetsNo targets recorded. Patient Instructions Encounter Date Encounter Id Patient Instructions Last Modified By Organization Details Last Modified Time 08/20/2023 [id number] Addressing 2 problems, 1 chronic and stable-needing labs, one new one requiring evaluation, prescription med and f/u Not available 08/20/2023 14:34:50 02/26/2024 [id number] seen and examine d with med student agree with physical findings and plan of care Not available 02/26/2024 20:40:37 Reason for Referral None Reported. Results Created Date Observation Date Name Description Value Unit Range Abnormal Flag Note LastModifiedBy Organization Detail LastModifiedTime 08/20/19 24 08/21/2023 TSH+F REE T4 TSH 1.940 uIU/m L 0.450- 4.500 Not Available [facility] ([facility]) [address] [facility] [place], [address], 08/21/2023 08:22:40 08/20/19 24 08/21/2023 TSH+F REE T4 T4,free(dire ct) 1.28 NG/dL 0.82-1 .77 Not Available [facility] ([facility]) [address] [facility] [place], [address], 08/21/2023 08:22:40 02/26/20 24 02/27/2024 THYRO ID PROFI LE II TSH 2.110 uIU/m L 0.450- 4.500 normal Not Available [facility] ([facility]) [address] [place], [address], 02/27/2024 11:14:08 02/26/20 24 02/27/2024 THYRO ID PROFI LE II thyroxine (T4) 8.2 ug/dL 4.5-12 .0 normal Not Available [facility] ([facility]) [address] [facility] [place], [address], 02/27/2024 11:14:08 02/26/20 24 02/27/2024 THYRO ID PROFI LE II T3 uptake 29 % 24-39 normal Not Available [facility] ([facility]) [address] [place], [address], 02/27/2024 11:14:08 02/26/20 24 02/27/2024 THYRO ID PROFI LE II free thyroxine index 2.4 1.2-4. 9 normal Not Available [facility] ([facility]) [address] [place], [address], 02/27/2024 11:14:08 02/26/20 24 02/27/2024 THYRO ID PROFI LE II triiodothyro nine (T3) 134 NG/dL 71-180 normal Not Available [facility] ([facility]) [address], [place], [address], 02/27/2024 11:14:08 Result Notes None recorded. Problems Name Problem SNOMED Code Status Onset Date Resolution Date Notes Provider Name and Address Organization Details Recorded Time Syncope 418041796 Active 023 Mango Mohr MD [address] [facility], [place], [address], [facility] & [place] 3 10:55:38 Problem Notes None recorded. Procedures Surgical History Date Name Laterality Status Provider Name and Address Organization Details Recorded Time tonsilectom y/adenoids completed Lorrie Cobos [facility] & [place] 01/28/2023 13:28:21 Imaging Results None recorded. Procedure Notes None recorded. Medical Equipment None Reported. Allergies Allergen ID Allergen Name Allergen Category Reaction Reaction Severity Criticality Documentation Date Start Date Code Code System Note Provider Name and Address Organization Details Recorded Time [id number] Cefzil medicatio n hives Not available Not available 02/04/2023 07505 1 RxNorm Ramya Munguia [facility], [facility] & [place] 3 10:36:15 Medications Name Sig Start Date Stop Date Status Note LastModified by Organization Details LastModified Time tretinoin 0.05 % topical cream APPLY TO AFFECTED AREA EVERY DAY AT BEDTIME active Not Available Not Available No t Available levothyroxi ne 25 mcg tablet Take 1 tablet every day by oral route as directed for 90 days, for subclinic al hypothyro idism. active Not Available Not Available No t Available albuterol sulfate HFA 90 mcg/actuati on aerosol inhaler Inhale 1-2 puffs prior to exertion or if feeling shortness of breath 02/25 completed Not Available Not Available Not Available Vitals Date Recorded Body height Body mass index (BMI) Body weight Body temperature Oxygen saturation Oxygen saturation in Arterial blood by Pulse oximetry Heart rate Systolic blood pressure Diastolic blood pressure Provider Name and Address Organization Details Last Updated DateTime 4 182.88 cm 28.2 kg/m2 49204.6 1 g 98.4 [degF] 99 % 99 % 74 /min 122 mm[Hg] 82 mm[Hg] Lorrie TIWARI - KIARANT [facility] & [place] 4 09:33:44 Date Recorded Body height Body mass index (BMI) Body weight Body temperature Oxygen saturation Oxygen saturation in Arterial blood by Pulse oximetry Heart rate Systolic blood pressure Diastolic blood pressure Provider Name and Address Organization Details Last Updated DateTime 4 182.88 cm 28.5 kg/m2 76683.8 g 97.1 [degF] 97 % 97 % 66 /min 118 mm[Hg] 80 mm[Hg] Lorrie TIWARI - LPNT [facility] & [place] 4 13:28:31 Date Recorded Body height Body mass index (BMI) Body weight Body temperature Oxygen saturation Oxygen saturation in Arterial blood by Pulse oximetry Heart rate Systolic blood pressure Diastolic blood pressure Provider Name and Address Organization Details Last Updated DateTime 4 182.88 cm 28.3 kg/m2 08952.6 5 g 97.7 [degF] 99 % 99 % 98 /min 120 mm[Hg] 70 mm[Hg] Lorrie Cobos KARIE - LPNT [facility] & [place] 4 13:55:24 Date Recorded Body height Body mass index (BMI) Body weight Body temperature Oxygen saturation Oxygen saturation in Arterial blood by Pulse oximetry Heart rate Systolic blood pressure Diastolic blood pressure Provider Name and Address Organization Details Last Updated DateTime 4 182.88 cm 28.3 kg/m2 78508.8 1 g 98 [degF] 97 % 97 % 76 /min 124 mm[Hg] 79 mm[Hg] Lorrie TIWARI - LPNT [facility] & [place] 4 10:02:17 Date Recorded Body height Body mass index (BMI) Body weight Body temperature Oxygen saturation Oxygen saturation in Arterial blood by Pulse oximetry Heart rate Systolic blood pressure Diastolic blood pressure Provider Name and Address Organization Details Last Updated DateTime 4 182.88 cm 27.8 kg/m2 63105.4 4 g 97.1 [degF] 97 % 97 % 85 /min 122 mm[Hg] 71 mm[Hg] July [facility] [place] 13:47:02 Social History Question Answer Notes LastModified by Organizat ion Details LastModified Time Tobacco Smoking Status Former Smoker Lorrie grigsby, [facility] & [place] 01/28/2023 13:27:26 What Is Your Level Of Caffeine Consumption? Heavy [email or web address] Information not available 01/28/2023 What Type Of Diet Are You Following? REGULAR [email or web address] Information not available 01/28/2023 Sex: Unknown Functional Status Question Answer Note LastModified by Organizat ion Details LastModified Time Do you use any illicit or recreational drugs? No [email or web address] Information not available 01/28/2023 What is your level of alcohol consumption? None [email or web address] Information not available 01/28/2023 What is your exercise level? Occasional [email or web address] Information not available 01/28/2023 Mental Status None recorded. Family History Nothing Reported. Medical History Condition Response Other Y Hypothyroidism Y Vision or Eye Problems Y Headaches Y Past Encounters Encounter ID Performer Location Encounter Start Date Encounter Closed Date Diagnosis/Indication Diagnosis SNOMED-CT Code Diagnosis ICD10 Code Diagnosis Note [id number] Yared Chiu MD [facility] [address] [facility] [address] [place] [address] 01/28/2023 13:14:12 01/28/2023 14:57:14 Adult health examination 402060245 Z00.00 Check labs since he is fasting: CBC, CMP, FLP, TSH. Unable to give urine sample for U/A Recommend Flu shot when he wants Effort syncope 44390093 R55 Will need further evaluation . Start with cardiology . Refer to Dr. Mohr. If NEG, would consider Neuro referral. Headache 77153460 R51.9 Unsure if this a true migraine or not. He declines any abortive treatment option at present. He wants to use ibuprofen. I have informed him if H/A comes on again, he should take the ibuprofen immediatel y and not wait. If H/A does not resolve within a few hours, he should call office to be seen, or if he is at [facility], get seen at [facility] for treatment [id number] Mango Mohr MD [facility] [address] [place] [address] 02/04/2023 10:05:52 02/04/2023 11:18:16 Syncope 750608435 R55 symptoms ongoing for several years. Last episode of syncope was 15 months ago. Can not completely rule out arrhythmia . EKG today with no evidence of conduction system disease.Wi ll get Echo to evaluate EF, diastolic function, valves and pulmonary pressuresE xercise induced pre syncope will get ETT [id number] Saul Norris MD [facility] [address] [place] [address] 03/20/2023 08:04:27 03/20/2023 09:12:06 Cough 45836424 R05.9 COVID-19 049226375 U07.1 Patient is positive for Covid. Stable at this time. Quarantine for 5 days from onset of symptoms, masking for 5 more days. OTC symptomati c treatment. Seek repeat evaluation and treatment if worsening or severe symptoms or if fails to improve. Rest, plenty of fluids, and supportive care. Influenza caused by Influenza B virus 13589952 J10.1 Seems to be improving, declines Tamiflu as states feels 90% better. [id number] Yared Chiu MD [facility] [address] [place] [address] 06/10/2023 09:14:28 06/10/2023 10:05:02 Hypothyroidism 44340781 E03.9 TSH was elevated but T4 was WNL. Repeat TSH Near syncope 709174152 R 55 will try alb MDI given exertional component Depressed mood 540881262 F32.A Does not want to see anyone or consider any kind of medication at present. Feels he can work things out on his own [id number] Yared Chiu MD [facility] [address] [place] [address] 06/19/2023 13:16:59 06/19/2023 14:10:17 Subclinical hypothyroidism 39098433 E02 Start levothyrox ine and f/u in 2 months [id number] Yared Chiu MD [facility] [address] [place] [address] 08/20/2023 13:41:07 08/20/2023 14:40:43 Subclinical hypothyroidism 62823183 E02 Check TSH today. Cont levothyrox ine 25 mcg Keratosis pilaris 231116 5 Q82.8 [id number] Yared Chiu MD [facility] [address] [facility] [place] [address] 11/25/2023 09:54:50 11/25/2023 10:30:44 Subclinical hypothyroidism 35593343 E02 Cont levothyrox ine 25 mcg and recheck in 3 months Keratosis pilaris 660029 5 Q82.8 he has not yet started the trenitoin cream which he is planning to start this week [id number] Yared Chiu MD [facility] [address] [facility] [place] [address] 02/26/2024 13:35:04 02/26/2024 15:09:34 Subclinical hypothyroidism 30608561 E02 Check thyroid profile and restart levothyrox ine 25 mcg daily Major depr essive disorder 956473962 F32.9 after much discussion about his options resources and what he wants /needs to do I have elected to start him on Trintellix 10 mg daily, 6 weeks sample given . He is agreed to take it. Additional ly I have given him contact [facility] for Sonja Martinez who he is to call and schedule an appointmen t with [facility]. We will plan to see him back in 4 weeks and see how he is doing Health Concerns Section Related Observation LastModified by Organization Detai ls LastModified Time None Recorded Concern Status LastModified by Organization Details LastModified Time None Recorded Advance Directives Directive None Recorded Payers Insurance Date Sequence Insurance Name Policy Number Policy Ash Covered Member ID Ash Member ID Guarantor Name 11/25/2023 2 [facility] () Dorian Michelle [id number] Dorian Michelle 06/22/2023 2 [place] [id number] Alesha Brooks [id number] Dorian Michelle 11/25/2023 2 [facility] () Dorian Michelle [id number] Dorian Miguel Angel 11/25/2023 2 [facility] ( - PPO) Dorian Miguel Angel [id number] Dorian Miguel Angel 03/30/2023 2 [place] [id number] Alesha Brooks [id number] Dorian Miguel Angel 02/25/2024 2 [facility] () Dorian Miguel Angel [id number] Dorian Miguel Angel 04/10/2024 1 [place] [id number] EA Dorian German Miguel Angel [id number] Dorianjung Michelle Notes Date Note Type Note Provider Name and Address Organization Details Recorded Time 06/10/2023 text/html Pt presents toda y for F/U. Had labs done back in Jan which showed a slight elevation of his TSH but normal T4. Had work-up by Dr. Mohr for his exertional syncope that was reportedly NEG. Still has some episode where he becomes fatigued, hot and has difficulty breathing feeling like he might pass out but has not. Yared Chiu MD [address], [place], [address], [facility] & [place] 06/10/2023 14:47:27 06/19/2023 text/html Pt presents for F/U on labs. Is requesting copy of OV notes to submit to his [employer] superiors. He does endorse fatigue, weight gain, felling cold more than hs feels he should, sleeping a lot.Labs reviewed cont to show elevated TSH and low normal T4. Yared Chiu MD [address], [place], [address], [facility] & [place] 06/19/2023 14:58:34 08/20/2023 text/html Pt presents for F/U. Has been taking the levothyroxine 25 mcg daily. Has felt less tired. Did have some H/A's the first week or so that has now resolved. No change in mood. Does want me to look at his arms. Says he has been bothered by acne on his arms and upper back. Yared Chiu MD [address], [place], [address], [facility] [place] 08/20/2023 14:35:25 11/25/2023 text/html Has felt a lot better on the med (levothyroxine). 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 He reports that he took Levothyroxine 25mcg q/daily for 1 month and stopped taking the medication. He voices that he is out of the now after 6 years and has been honorably discharged as of last month. He voices depression, nightmares, sleep disturbance. He reports that he had one episode of syncope at work without losing consciousness. He voices that he does not want to be on medication, does not want to seek talk therapy or a psychiatric consult, and he does not have a support system. Yared Chiu MD [address], [place], [address], [facility] [place] 02/26/2024 20:41:26
[2024-09-08] MEDS: ALBUTEROL 0.083% 2.5 MG/3 ML NEB IH (14:02)
[2024-09-09 15:41] LABS: Triiodothyronine (T3) Free 3.9 pg/mL (2.0-4.4)
== END 2024-09-08 23:59 | disposition home or self-care (01) ==
LOC: RT 13:15
PROVIDERS: Visit Provider Chiropractor
DX: E03.9 Hypothyroidism, unspecified (principal); R06.02 Shortness of breath
CPT/HCPCS: 36415; 84481; 94010